=== PATIENT | female | born 1950 | race Caucasian/White ===

== ENCOUNTER 2023-06-27 19:38 | Outpatient (CLI) | payer MEDICARE ==
--- NOTE | 2023-07-16 13:09 | P.PCN ---
Date of Procedure: 06/27/23 Operative Findings: Polysomnography report Date of services 06/27/2023 History This is a 72-year-old female patient was referred to me for evaluation of chronic hypersomnia and fatigue. The patient was suspected to have obstructive sleep apnea as the patient was found to have crowding of the posterior pharynx or Mallampati class IV. She also had an obvious overbite. She has chronic sinus disease and she is a mouth breather and she has gained weight over the years. She is known to have COPD, hypertension, hyperlipidemia and diabetes mellitus type 2. No history of any cardiac disease. Patient is also known to have severe COPD. Maintained on Trelegy Ellipta. She is a chronic smoker and she has remote history of pulmonary embolism Pertinent physical findings The patient's height is 5 feet and 5 inches, weight is 190 pounds with a body mass index of 31.6 Technical description The patient was studied using a standard complex polysomnography protocol that included recording of the 2 EKG, Central, occipital and frontal EEG, right and left outer canthus EOG, submental EMG, right and left anterior tibialis EMG, respiratory airflow by thermocouple and or pressure/flow transducer, respiratory efforts by abdominal and thoracic PVDF belts, oxygen saturation by cable oximetry. Position by observation synchronized the PSG. Equipment used: NGDATA. Sleep characteristics The total recording duration was 393.5 minutes. The total sleep time was 281 minutes. The patient had a sleep efficiency of 71.4%. The wake after sleep onset time was 56 minutes. The sleep latency was 53 minutes and the latest REM sleep was 322.5 minutes. The sleep architecture was characterized by 7.1% stage I, 83.8% stage II, 2.7% stage III and 6,4% REM sleep. The total arousal index was 14.7. Respiratory analysis The sleep study showed a total of 5 obstructive events of which 0 were obstructive apneas, 0 mixed apneas and 5 obstructive hypopneas. The AHI was 0.4. Central apnea index was 0. Oxygenation analysis the patient had a baseline pulse ox of 91% while awake. Lowest oxygen saturation was 84% during sleep and the patient spent approximately 2 hours and 42 minutes of sleep time below pulse ox of 89%. This is probably due to underlying COPD and she did encounter some nocturnal oxygen desaturations. Sleep continuity summary The patient had a total of 69 arousals with an index of 14.7. Respiratory arousal index was 0.2 Periodic limb movements There was a total of 145 periodic movement events with an index of 31. The patient encountered a total of 4 periodic limb movements with arousals with an index of 0.9 Cardiac summary Average heart rate was 81 with a minimum heart rate of 77 and a maximum rate of 87 Assessment Primary snoring, no evidence of any sleep breathing disorder. The patient had an apnea-hypopnea index of 0.4 Nocturnal oxygen desaturation. The patient has chronic baseline hypoxemia with a pulse ox of 91% while awake. This is attributed to her chronic COPD. She did encounter oxygen desaturation the patient may benefit from nighttime O2 supplem entation as the patient spent approximately 2 hours and 42 minutes of sleep time below pulse ox of 89% Severe COPD, based on FEV1 is 58% of predicted Hypertension Obesity Hyperlipidemia Diabetes mellitus type 2 Remote history of pulmonary embolism History of depression History of osteopenia Plan No need for CPAP therapy. Would benefit from oxygen supplementation. If does not have source of O2 at home, recommend O2 therapy overnight with a concentrator at 2 L to maintain saturation above 90%. Continue optimizing COPD. Will follow and will see the patient in the office.
== END 2023-06-28 05:45 | disposition home or self-care (01) ==
LOC: 3 N SLEEP 19:38
PROVIDERS: ATTEND Internal Medicine Critical Care Medicine
DX: G47.33 Obstructive sleep apnea (adult) (pediatric) (principal); G47.10 Hypersomnia, unspecified; R06.83 Snoring; J44.9 Chronic obstructive pulmonary disease, unspecified; I10 Essential (primary) hypertension; E66.9 Obesity, unspecified; E78.5 Hyperlipidemia, unspecified; E11.9 Type 2 diabetes mellitus without complications; F32.A Depression, unspecified; M85.88 Other specified disorders of bone density and structure, other site; Z86.711 Personal history of pulmonary embolism; Z88.2 Allergy status to sulfonamides; Z91.048 Other nonmedicinal substance allergy status; Z79.84 Long term (current) use of oral hypoglycemic drugs; Z79.4 Long term (current) use of insulin; Z79.899 Other long term (current) drug therapy; Z79.82 Long term (current) use of aspirin
CPT/HCPCS: 95810

== ENCOUNTER 2023-07-08 23:42 | Inpatient (IN) | payer MEDICARE ==
[2023-07-09] MEDS ORDERED: NALOXONE 0.4 MG/ML 1 ML VIAL IV PRN (00:24)
--- NOTE | 2023-07-09 00:28 | ED ---
Recheck HPI - General Chief Complaint: Recheck/Abnormal Lab/Rx Stated Complaint: PE ruleout Time Seen by Provider: 07/08/23 23:43 Source: patient, EMS, RN notes reviewed, old records reviewed Mode of arrival: EMS - History of Present Illness Initial Comments: This is a 72-year-old female transferred from outpatient facility patient presents to us for evaluation of elevated troponin and chest pain. Patient did have a CT scan negative for PE. Patient presents for cardiology evaluation currently without chest pain MD Complaint: abnormal lab (Elevated troponin with chest pain) -: hour(s) Returns Today for: persistent/worsening pain related to initial visit Symptoms Since Prior Visit: worsening pain Context: planned re-check, called for abnormal lab result Associated Symptoms: none Treatments Prior to Arrival: other - Related Data Home Medications Medication Instructions Recorded Confirmed Citalopram Hydrobromide [CeleXA] 20 mg PO DAILY 07/09/23 07/09/23 Fluticasone/Umeclidin/Vilanter 1 puff INHALATION RT-DAILY 07/09/23 07/09/23 [Trelegy Ellipta 100-62.5-25] Insulin Glargine,Hum.rec.anlog 20 units SQ AC-SUPPER 07/09/23 07/09/23 [Lantus Solostar Pen] Lisinopril-Hctz 10-12.5 mg 1 tab PO DAILY 07/09/23 07/09/23 [Zestoretic 10-12.5] glipiZIDE [Glucotrol] 10 mg PO DAILY 07/09/23 07/09/23 metFORMIN HCL ER [Glucophage XR] 500 mg PO DAILY 07/09/23 07/09/23 Previous Rx's Medication Instructions Recorded Aspirin 81 mg PO DAILY 90 Days #90 tab 07/14/23 Diltiazem Oral [Cardizem*] 30 mg PO TID 30 Days #90 tab 07/14/23 Pantoprazole [Protonix] 40 mg PO AC-BID 30 Days #60 tab 07/14/23 cefUROXime axetiL [Ceftin] 500 mg PO BID 5 Days #10 tab 07/14/23 Allergies Allergy/AdvReac Type Severity Reaction Status Date / Time sulfamethoxazole Allergy Unknown Verified 07/09/23 07:29 [From Bactrim] trimethoprim [From Bactrim] Allergy Unknown Verified 07/09/23 07:29 Penicillins AdvReac Nausea & Verified 07/09/23 07:29 Vomiting Review of Systems ROS Statement: Those systems with pertinent positive or pertinent negative responses have been documented in the HPI. ROS Other: All systems not noted in ROS Statement are negative. Past Medical History Past Medical History: Diabetes Mellitus, Hypertension Additional Past Surgical History / Comment(s): tooth extracted Smoking Status: Current every day smoker Past Alcohol Use History: None Reported Past Drug Use History: None Reported - Past Family History Mother Family Medical History: Diabetes Mellitus Father Additional Family Medical History / Comment(s): alzhiemers General Exam General appearance: alert, in no apparent distress, anxious Head exam: Present: atraumatic, normocephalic, normal inspection Eye exam: Present: normal appearance, PERRL, EOMI. Absent: scleral icterus, conjunctival injection, periorbital swelling ENT exam: Present: normal exam, mucous membranes moist Neck exam: Present: normal inspection. Absent: tenderness, meningismus, lympha denopathy Respiratory exam: Present: normal lung sounds bilaterally. Absent: respiratory distress, wheezes, rales, rhonchi, stridor Cardiovascular Exam: Present: regular rate, normal rhythm, normal heart sounds. Absent: systolic murmur, diastolic murmur, rubs, gallop, clicks GI/Abdominal exam: Present: soft, normal bowel sounds. Absent: distended, tenderness, guarding, rebound, rigid Extremities exam: Present: normal inspection, full ROM, normal capillary refill. Absent: tenderness, pedal edema, joint swelling, calf tenderness Back exam: Present: normal inspection Neurological exam: Present: alert, oriented X3, CN II-XII intact Psychiatric exam: Present: normal affect, normal mood Skin exam: Present: warm, dry, intact, normal color. Absent: rash Course Vital Signs 07/08/23 07/09/23 07/09/23 23:43 01:00 02:45 Temperature 98.5 F Pulse Rate 95 146 H 92 Pulse Rate [ Pulse Oximetery ] Respiratory 20 22 18 Rate Blood Pressure 135/77 142/90 Blood Pressure [Right Arm] O2 Sat by Pulse 93 L 97 Oximetry 07/09/23 07/09/23 07/09/23 04:21 06:18 08:00 Temperature 97.9 F Pulse Rate 92 97 Pulse Rate [ 96 Pulse Oximetery ] Respiratory 18 19 16 Rate Blood Pressure 117/73 90/59 Blood Pressure 96/79 [Right Arm] O2 Sat by Pulse 95 95 93 L Oximetry 07/09/23 12:00 Temperature 98.2 F Pulse Rate Pulse Rate [ 97 Pulse Oximetery ] Respiratory 16 Rate Blood Pressure Blood Pressure 124/89 [Right Arm] O2 Sat by Pulse 93 L Oximetry - Reevaluation(s) Reevaluation #1: 07/09/23 00:26 Medical records reviewed Reevaluation #2: 07/09/23 00:26 Patient symptoms are improved remains improved has no chest pain Reevaluation #3: 07/09/23 00:27 Patient informed of results questions answered Reevaluation #4: Was pt. sent in by a medical professional or institution ([facility] [place], SMALL BUSINESS REPRESENTATIVE, urgent care, hospital, or skilled nursing...) When possible be specific @ -no Did you speak to anyone other than the patient for history (EMS, parent, family, police, friend...)? What history was obtained from this source @ -no Did you review nursing and triage notes (agree or disagree)? Why? @ -agree Are old charts reviewed (outside hosp., previous admission, EMS record, old EKG, old radiological studies, urgent care reports/EKG's, skilled nursing records)? Report findings @ -yes Differential Diagnosis (chest pain, altered mental status, abdominal pain women, abdominal pain men, vaginal bleeding, weakness, fever, dyspnea, syncope, headache, dizziness, GI bleed, back pain, seizure, CVA, palpatations, mental health, musculoskeletal)? @ -prior EKG interpreted by me (3pts min.). @ -yes X-rays interpreted by me (1pt min.). @ -yes negative for acute disease CT interpreted by me (1pt min.). @ -Yes negative for acute disease U/S interpreted by me (1pt. min.). @ -no What testing was considered but not performed or refused? (CT, X-rays, U/S, labs)? Why? @ -none What meds were considered but not given or refused? Why? @ -none Did you discuss the management of the patient with other professionals (professionals i.e. , [facility], SMALL BUSINESS REPRESENTATIVE, lab, RT, psych nurse, social work instructor, blueprint reader, teacher, chief business officer, case operator)? Give summary @ -no Was smoking cessation discussed for >3mins.? @ -no Was critical care preformed (if so, how long)? @ -yes13 Were there social determinants of health that impacted care today? How? (Homelessness, low income, unemployed, alcoholism, drug addiction, transportation, low edu. Level, literacy, decrease access to med. care, shelter, rehab)? @ -none Was there de-escalation of care discussed even if they declined (Discuss DNR or withdrawal of care, Hospice)? DNR status @ -no What co-morbidities impacted this encounter? (DM, HTN, Smoking, COPD, CAD, Cancer, CVA, ARF, Chemo, Hep., AIDS, mental health diagnosis, sleep apnea, morbid obesity)? @ -none Was patient admitted / discharged? Hospital course, mention meds given and route, prescriptions, significant lab abnormalities, going to OR and other pertinent info. @ - 72 female to ER for chest pain. Patient be admitted for chest pain observation, patient does have elevated troponin, negative CT scan for PE. Admitted Undiagnosed new problem with uncertain prognosis? @ -no Drug Therapy requiring intensive monitoring for toxicity (Heparin, Nitro, Insulin, Cardizem)? @ -no Were any procedures done? @ -no Diagnosis/symptom? @ -Chest pain non-ST elevated NC Acute, or Chronic, or Acute on Chronic? @ -Acute Uncomplicated (without systemic symptoms) or Complicated (systemic symptoms)? @ -Complicated Side effects of treatment? @ -no Exacerbation, Progression, or Severe Exacerbation? @ -exacerbation Poses a threat to life or bodily function? How? (Chest pain, USA, NC, pneumonia, PE, COPD, DKA, ARF, appy, cholecystitis, CVA, Diverticulitis, Homicidal, Suicidal, threat to staff... and all critical care pts) @ -yes Reevaluation #5: Differential Chest Pain: Stable Angina, Unstable Angina, STEMI, NSTEMI Aortic Dissection, Pneumothorax, Musculoskeletal, Esophageal Spasm GERD, Cholecystitis, Pancreatitis, Zoster, this is not meant to be an all-inclusive list. Medical Decision Making - Medical Decision Making 72 female to ER for chest pain. Patient be admitted for chest pain observation, patient does have elevated troponin, negative CT scan for PE. - Lab Data Result diagrams: 07/14/23 06:50 07/14/23 06:50 - EKG Data -: EKG Interpreted by Me (EKG is sinus 90 [place] 149 QRS 76 QTc 424) - Radiology Data Radiology results: report reviewed (CT angio chest negative for PE) Critical Care Time Critical Care Time: Yes Total Critical Care Time: 31 Disposition Clinical Impression: Chest pain, NSTEMI (non-ST elevated myocardial infarction), Diabetes mellitus Disposition: ADMITTED IP TO THIS HOSP Condition: Serious Is patient prescribed a controlled substance at d/c from ED?: No Time of Disposition: 00:45
[2023-07-09] MEDS: SODIUM CHLORIDE 0.9% 1,000 ML IV STA (01:01)
[2023-07-09 01:27] LABS: Basophils % (A) 0 %; Eosinophils % (A) 1 %; HCT 41.7 % (34.0-46.0); HGB 14.7 gm/dL (11.4-16.0); Lymphocytes # (A) 1.1 k/uL (1.0-4.8); Lymphocytes % (A) 16 %; MCH 35.2 pg (25.0-35.0); MCHC 35.3 g/dL (31.0-37.0); MCV 99.7 fL (80.0-100.0); Mean Platelet Volume 11.2; Monocytes # (A) 0.2 k/uL (0-1.0); Monocytes % (A) 2 %; Neutrophils # (A) 5.6 k/uL (1.3-7.7); Neutrophils % (A) 80 %; Platelet Count 175 k/uL (150-450); RBC 4.19 m/uL (3.80-5.40); RDW 13.2 % (11.5-15.5)
[2023-07-09 01:39] LABS: ALT 19 U/L (4-34); African American GFR (CKD) 83 (>60 ml/min/1.73 sqM); Albumin 3.8 g/dL (3.5-5.0); Anion Gap 8 mmol/L; Blood Urea Nitrogen 20 mg/dL (7-17); Calcium 9.2 mg/dL (8.4-10.2); Carbon Dioxide 23 mmol/L (22-30); Chloride 106 mmol/L (98-107); Glucose 264 mg/dL (74-99); Non-African American GFR(CKD) 72 (>60 ml/min/1.73 sqM); Sodium 137 mmol/L (137-145); Total Bilirubin 0.6 mg/dL (0.2-1.3); Total Protein 6.9 g/dL (6.3-8.2)
[2023-07-09 01:48] LABS: NT-Pro-B-Type Natriuretic Pept 33 pg/mL
[2023-07-09 01:55] LABS: INR 0.9 (<1.2); Partial Thromboplastin Time 22.4 sec (22.0-30.0); Prothrombin Time 10.5 sec (10.0-12.5)
[2023-07-09 02:11] LABS: AST 23 U/L (14-36); Potassium 4.4 mmol/L (3.5-5.1)
[2023-07-09 02:12] LABS: Alkaline Phosphatase 64 U/L (38-126); Magnesium 1.3 mg/dL (1.6-2.3); Phosphorus 4.4 mg/dL (2.5-4.5)
[2023-07-09] MEDS ORDERED: HEPARIN SODIUM,PORCINE 10,000 UNIT in SODIUM CHLORIDE 0.9% 1,000 ML IRRIGATION PRN (07:00)
[2023-07-09] MEDS ORDERED: HEPARIN SODIUM,PORCINE (1 ML) 2,500 UNIT in SODIUM CHLORIDE 0.9% 250 ML IRRIGATION PRN (07:00)
[2023-07-09] MEDS ORDERED: DEXTROSE 50% SYRINGE 50 ML IVP PRN ×2 (09:02)
[2023-07-09] MEDS ORDERED: HEPARIN SODIUM 1,000 UN/ML (10ML VL) IV PRN (09:53)
--- NOTE | 2023-07-09 09:56 | P.CRDCN ---
History of Present Illness History of present illness: HISTORY OF PRESENT ILLNESS: This is a 72-year-old female with a past medical history significant for hypertension, diabetes, and pulmonary embolism. 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 We have been asked to see the patient in consultation for elevated troponins. Patient examined at the bedside in the emergency room. Patient initially presented to [facility] yesterday with a chief complaint of pain. Patient states the pain was underneath her right breast. She states that 2 days ago she had an episode of really bad heartburn and was taking Gas-X multiple times. She states the Gas-X would help for a couple hours and then the pain would come back. She continues to report right upper quadrant abdominal pain this morning. She denies having any chest pain or pressure. She does report a family history of CAD and states that her brother and sister both suddenly approximately 10 years ago. She is a current cigarette smoker. DIAGNOSTICS: - EKG reveals sinus mechanism with nonspecific ST-T wave changes - Laboratory data: WBC 7.0. Hemoglobin 14.7. Platelet count 175. Sodium 137. Potassium 4.4. BUN 20. Creatinine 0.82. Troponin 0.037. - Current home cardiac medications include lisinoprilhydrochlorothiazide 10- 12.5 mg daily. REVIEW OF SYSTEMS: At the time of my exam: CONSTITUTIONAL: Denies fever or chills. HEENT: Denies blurred vision, vision changes, or eye pain. Denies hemoptysis CARDIOVASCULAR: Denies chest pain. Denies orthopnea. Denies PND. Denies palpitations RESPIRATORY: Denies shortness of breath. GASTROINTESTINAL: Denies abdominal pain. Denies nausea or vomiting. HEMATOLOGIC: Denies bleeding disorders. GENITOURINARY: Denies any blood in urine. SKIN: Denies pruitis. Denies rash. PHYSICAL EXAM: VITAL SIGNS: Reviewed. GENERAL: Well-developed in no acute distress. HEENT: Head is normocephalic. Pupils are equal, round. Sclerae anicteric. Mucous membranes of the mouth are moist. Neck supple. No JVD or thyromegaly LUNGS: Respirations even and unlabored. Lungs essentially clear to auscultation bilaterally. HEART: Regular rate and rhythm. S1 and S2 heard. ABDOMEN: Soft. Nondistended. Right upper quadrant tender upon palpation. EXTREMITIES: Normal range of motion. No clubbing or cyanosis. Peripheral pulses intact. No lower extremity edema NEUROLOGIC: Awake and alert. Oriented x 3. ASSESSMENT: Right upper quadrant abdominal pain, rule out anginal equivalent Elevated troponin, possible non-STEMI Hypertension Diabetes History of pulmonary embolism Family history of CAD Nicotine dependence PLAN: Obtain 2D echo to assess cardiac structure and function Begin IV heparin Add aspirin 81 mg daily and atorvastatin 40 mg at night Resume home cardiac medications Trend troponins NPO Obtain abdominal ultrasound Will plan for cardiac catheterization later this afternoon Further recommendations pending patient course Nurse practitioner note has been reviewed by physician. Signing provider agrees with the documented findings, assessment, and plan of care documented by MEDICAL LANGUAGE SPECIALIST as a scribe. Past Medical History Past Medical History: Diabetes Mellitus, Hypertension Additional Past Surgical History / Comment(s): tooth extracted Smoking Status: Current every day smoker Past Alcohol Use History: None Reported Past Drug Use History: None Reported - Past Family History Mother Family Medical History: Diabetes Mellitus Father Additional Family Medical History / Comment(s): alzhiemers Medications and Allergies Home Medications Medication Instructions Recorded Confirmed Type Citalopram Hydrobromide [CeleXA] 20 mg PO DAILY 07/09/23 07/09/23 History Doxycycline Hyclate 100 mg PO BID 07/09/23 07/09/23 History Fluticasone/Umeclidin/Vilanter 1 puff INHALATION RT-DAILY 07/09/23 07/09/23 History [Trelegy Ellipta 100-62.5-25] Ibuprofen [Motrin] 600 mg PO Q6H PRN 07/09/23 07/09/23 History Insulin Glargine,Hum.rec.anlog 20 units SQ AC-SUPPER 07/09/23 07/09/23 History [Lantus Solostar Pen] Lisinopril-Hctz 10-12.5 mg 1 tab PO DAILY 07/09/23 07/09/23 History [Zestoretic 10-12.5] glipiZIDE [Glucotrol] 10 mg PO DAILY 07/09/23 07/09/23 History metFORMIN HCL ER [Glucophage XR] 500 mg PO DAILY 07/09/23 07/09/23 History Allergies Allergy/AdvReac Type Severity Reaction Status Date / Time sulfamethoxazole Allergy Unknown Verified 07/09/23 07:29 [From Bactrim] trimethoprim [From Bactrim] Allergy Unknown Verified 07/09/23 07:29 Penicillins AdvReac Nausea & Verified 07/09/23 07:29 Vomiting Physical Exam Vitals: Vital Signs Temp Pulse Resp BP Pulse Ox 07/09/23 06:18 97 19 90/59 95 07/09/23 04:21 92 18 117/73 95 07/09/23 02:45 92 18 07/09/23 01:00 146 H 22 142/90 97 07/08/23 23:43 98.5 F 95 20 135/77 93 L Intake and Output 07/08/23 07/09/23 07/09/23 22:59 06:59 14:59 Other: Weight 87.997 kg Results 07/09/23 10:56 07/09/23 00:55 Cardiac Enzymes 07/09/23 07/09/23 Range/Units 00:55 00:55 AST 23 (14-36) U/L Troponin I 0.037 H* (0.000-0.034) ng/mL Coagulation 07/09/23 Range/Units 00:55 PT 10.5 (10.0-12.5) sec APTT 22.4 (22.0-30.0) sec CBC 07/09/23 Range/Units 00:55 WBC 7.0 (3.8-10.6) k/uL RBC 4.19 (3.80-5.40) m/uL Hgb 14.7 (11.4-16.0) gm/dL Hct 41.7 (34.0-46.0) % Plt Count 175 (150-450) k/uL Comprehensive Metabolic Panel 07/09/23 Range/Units 00:55 Sodium 137 (137-145) mmol/L Potassium 4.4 (3.5-5.1) mmol/L Chloride 106 (98-107) mmol/L Carbon Dioxide 23 (22-30) mmol/L BUN 20 H (7-17) mg/dL Creatinine 0.82 (0.52-1.04) mg/dL Glucose 264 H (74-99) mg/dL Calcium 9.2 (8.4-10.2) mg/dL AST 23 (14-36) U/L ALT 19 (4-34) U/L Alkaline Phosphatase 64 (38-126) U/L Total Protein 6.9 (6.3-8.2) g/dL Albumin 3.8 (3.5-5.0) g/dL Current Medications Generic Name Dose Route Start Last Admin Trade Name Freq PRN Reason Stop Dose Admin Aspirin 81 mg 07/09/23 09:00 Aspirin 81 Mg PO DAILY [facility] Atorvastatin Calcium 40 mg 07/09/23 21:00 Atorvastatin 40 Mg Tab PO HS [facility] Citalopram Hydrobromide 20 mg 07/10/23 09:00 Citalopram Hydrobromide 20 Mg Tab PO DAILY [facility] Dextrose/Water 25 ml 07/09/23 09:02 Dextrose 50% Syringe 50 Ml IVP PER PROTOCOL PRN Hypoglycemia Protocol Dextrose/Water 50 ml 07/09/23 09:02 Dextrose 50% Syringe 50 Ml IVP PER PROTOCOL PRN Hypoglycemia Protocol Lisinopril/HCTZ 1 each 07/10/23 09:00 Lisinopril-Hctz 10-12.5 Mg 1 Each Tab PO DAILY [facility] Sodium Chloride 1,000 mls @ 75 mls/hr 07/09/23 00:24 07/09/23 01:01 Saline 0.9% IV 07/09/23 13:43 75 mls/hr .[id number] STA Administration Insulin Detemir 20 unit 07/09/23 17:30 Insulin Detemir (Levemir) 100 Unit/Ml Syr SQ AC-SUPPER [facility] Morphine Sulfate 4 mg 07/09/23 00:24 Morphine Sulfate 4 Mg/Ml Syringe IV Q4HR PRN Severe Pain (Scale 7 to 10) Naloxone HCl 0.2 mg 07/09/23 00:24 Naloxone 0.4 Mg/Ml 1 Ml Vial IV Q2M PRN Opioid Reversal Ondansetron HCl 4 mg 07/09/23 00:24 Ondansetron 4 Mg/2 Ml Vial IVP Q8HR PRN Nausea And Vomiting Intake and Output 07/08/23 07/09/23 07/09/23 22:59 06:59 14:59 Other: Weight 87.997 kg 07/09/23 00:55 07/09/23 00:55
[2023-07-09] MEDS: ASPIRIN 81 MG PO SCH (10:27)
[2023-07-09] MEDS: HEPARIN SODIUM 1,000 UN/ML (10ML VL) IV ONE (10:27)
[2023-07-09] MEDS: HEPARIN SOD,PORK IN 0.45% NACL 25,000 UNIT in 0.45% NACL 1 250ML.BAG IV SCH (10:28)
[2023-07-09 11:35] LABS: Basophils % (A) 0 %; Eosinophils % (A) 0 %; HCT 42.2 % (34.0-46.0); HGB 13.7 gm/dL (11.4-16.0); Lymphocytes # (A) 1.1 k/uL (1.0-4.8); Lymphocytes % (A) 16 %; MCH 33.1 pg (25.0-35.0); MCHC 32.5 g/dL (31.0-37.0); Macrocytosis Slight; Mean Platelet Volume 11.4; Monocytes # (A) 0.3 k/uL (0-1.0); Monocytes % (A) 5 %; Neutrophils # (A) 5.3 k/uL (1.3-7.7); Neutrophils % (A) 76 %; Platelet Count 196 k/uL (150-450); RBC 4.14 m/uL (3.80-5.40)
[2023-07-09 11:58] LABS: Glucose,Whole Blood 299 mg/dL (70-110)
[2023-07-09 12:00] LABS: INR 1.1 (<1.2); Partial Thromboplastin Time 70.6 sec (22.0-30.0); Prothrombin Time 11.5 sec (10.0-12.5)
[2023-07-09] MEDS ORDERED: NITROGLYCERIN SL TABS 0.4 MG TAB SUBLINGUAL PRN (12:59)
[2023-07-09] MEDS ORDERED: ALPRAZolam 0.25 MG TAB PO PRN (12:59)
[2023-07-09] MEDS: ATORVASTATIN 80 MG TAB PO STA (14:26)
[2023-07-09] MEDS: ASPIRIN 81 MG PO STA (14:26)
[2023-07-09] MEDS: SODIUM CHLORIDE 0.9% 1,000 ML in EMPTY BAG 1 BAG IV SCH (14:26)
[2023-07-09] MEDS: SODIUM CHLORIDE 0.9% 1,000 ML IV ONE (14:40)
[2023-07-09] MEDS ORDERED: HEPARIN SODIUM 1,000 UN/ML (10ML VL) ONE (14:49)
[2023-07-09] MEDS: LIDOCAINE 1% INJ 10MG/ML (20 ML MDV) SQ ONE (14:54)
[2023-07-09] MEDS: MIDAZOLAM 2 MG/2 ML VIAL IVP ONE (14:54)
[2023-07-09] MEDS: VERAPAMIL SYRINGE (5 MG/10 ML) INTRAARTER ONE (14:55)
[2023-07-09] MEDS: IOPAMIDOL-370 100ML BTL INJ ONE (15:04)
[2023-07-09] MEDS ORDERED: RX INFO: IV CONTRAST WAS GIVEN 1 EACH MISC MISCELLANE PRN (15:08)
--- NOTE | 2023-07-09 15:12 | P.PCN ---
Date of Procedure: 07/09/23 Operative Findings: CARDIAC CATHETERIZATION PERFORMING PHYSICIAN: Danny Mello MD, RPVI PROCEDURE PERFORMED: 1. Selective right and left coronary angiogram 2. Left heart catheterization 3. Ultrasound-guided access of the right radial artery INDICATION: Acute non-ST elevation myocardial infarction COMPLICATION: None APPROACH: Right radial artery LEVEL OF SEDATION: Moderate with a sedation length of 11 minutes PROCEDURE DESCRIPTION: After obtaining an informed consent, the patient was brought to cardiac slab tripper. Local anesthesia was performed using lidocaine subcutaneously. The right radial artery was cannulated using Seldinger technique, the guidewire passed easily, following that we advanced a 5-[place] sheath dilator assembly, the wire and dilator were removed and sheath was flushed. Selective right and left coronary angiogram using a 6-[place] JR4 and JL 3.5 catheters. Following that we did left heart catheterization using 6-[place] pigtail catheter. The procedure was completed there was no complication. SELECTIVE CORONARY ANGIOGRAM: The right coronary artery: Large-caliber vessel and a dominant vessel and is angiographically normal Left main: Has mild disease only The left circumflex: Large-caliber vessel and nondominant vessel and appears to be angiographically normal The left anterior descending artery: Large-caliber vessel appears to be angiographically normal and gives rise into a large diagonal branch HEMODYNAMICS: LVEDP was 12 mmHg with no significant gradient across aortic valve CONCLUSION: 1. Mild disease involving the left main 2. Normal left-sided filling pressure POSTPROCEDURE MANAGEMENT: Medical treatment
--- NOTE | 2023-07-09 16:24 | US ---
EXAMINATION TYPE: US abdomen complete DATE OF EXAM: 07/09/2023 COMPARISON: NONE CLINICAL INDICATION: Female, 72 years old with history of abdominal pain/RUQ pain; Generalized pain. TECHNIQUE: Multiple sonographic images of the abdomen are obtained. FINDINGS: EXAM MEASUREMENTS: Liver Length: 17.3 cm Gallbladder Wall: 0.2 cm CBD: 0.6 cm Spleen: 8.3 cm Right Kidney: 10.5 x 4.6 x 3.9 cm Left Kidney: 9.3 x 3.9 x 5.1 cm Pancreas: Main pancreatic duct= 3.7 mm, tail not seen. Liver: Borderline enlarged. Echogenic and heterogenous. Gallbladder: No stones or wall thickening Evidence for sonographic Mcleod's sign: neg CBD: Borderline dilated, acceptable given patient's age. Spleen: wnl Right Kidney: No hydronephrosis or masses seen Left Kidney: No significant hydronephrosis or masses seen, lobular/nodular renal cortex likely an atomic variation. Upper IVC: wnl Abd Aorta: Obscured by overlying bowel gas IMPRESSION: 1. Severe hepatic steatosis. Related with LFTs, lipid profile, patient risk factors. Appropriate renu gement recommended. 2. Main pancreatic duct mildly dilated at 3.7 mm. This may be chronic for the patient. Correlate with amylase and lipase levels. Short interval follow-up ultrasound in 2-3 months to reassess.
[2023-07-09 16:56] LABS: Glucose,Whole Blood 294 mg/dL (70-110)
[2023-07-09] MEDS: SODIUM CHLORIDE 0.9% 1,000 ML IV SCH (17:20)
[2023-07-09] MEDS: INSULIN DETEMIR (LEVEMIR) 100 UNIT/ML SYR SQ SCH (17:55)
[2023-07-09 20:12] LABS: Glucose,Whole Blood 270 mg/dL (70-110)
[2023-07-09] MEDS: ATORVASTATIN 40 MG TAB PO SCH (20:14)
[2023-07-09] MEDS: MORPHINE SULFATE 4 MG/ML SYRINGE IV PRN (20:14)
[2023-07-09] MEDS: PANTOPRAZOLE 40 MG TABLET PO SCH (20:14)
[2023-07-09] MEDS: ONDANSETRON 4 MG/2 ML VIAL IVP PRN (22:54)
[2023-07-09] MEDS: ACETAMINOPHEN TAB 325 MG TAB PO PRN (23:11)
[2023-07-09 23:54] LABS: Amylase 42 U/L (30-110); Lipase 57 U/L (23-300)
[2023-07-10 06:03] LABS: Glucose,Whole Blood 263 mg/dL (70-110)
--- NOTE | 2023-07-10 08:39 | XR ---
EXAMINATION TYPE: XR chest 1V DATE OF EXAM: 07/10/2023 COMPARISON: None INDICATION: Short of breath TECHNIQUE: Single frontal view of the chest is obtained. FINDINGS: The heart size is normal. The pulmonary vasculature is normal. The lungs are clear. IMPRESSION: 1. No acute pulmonary process.
--- NOTE | 2023-07-10 08:44 | PN ---
PROGRESS NOTE Possible discharge if cleared by Surgery, Cardiology. MMODL / IJN: [id number] /
[2023-07-10] MEDS: CITALOPRAM HYDROBROMIDE 20 MG TAB PO SCH (10:02)
[2023-07-10] MEDS: LISINOPRIL-HCTZ 10-12.5 MG 1 EACH TAB PO SCH (10:03)
[2023-07-10] MEDS: NICOTINE 21MG/24HR PATCH TRANSDERM SCH (10:06)
[2023-07-10 10:37] LABS: Prothrombin Time 11.2 sec (10.0-12.5)
[2023-07-10 10:50] LABS: HCT 40.3 % (34.0-46.0); HGB 13.2 gm/dL (11.4-16.0); MCH 33.7 pg (25.0-35.0); MCHC 32.8 g/dL (31.0-37.0); MCV 102.9 fL (80.0-100.0); Macrocytosis Slight; Mean Platelet Volume 11.1; Platelet Count 132 k/uL (150-450); RBC 3.92 m/uL (3.80-5.40); RDW 13.3 % (11.5-15.5); WBC 11.5 k/uL (3.8-10.6)
[2023-07-10 10:56] LABS: ALT 209 U/L (4-34); AST 357 U/L (14-36); African American GFR (CKD) 61 (>60 ml/min/1.73 sqM); Albumin 3.2 g/dL (3.5-5.0); Alkaline Phosphatase 65 U/L (38-126); Anion Gap 7 mmol/L; Blood Urea Nitrogen 26 mg/dL (7-17); Carbon Dioxide 26 mmol/L (22-30); Chloride 102 mmol/L (98-107); Glucose 333 mg/dL (74-99); Magnesium 1.2 mg/dL (1.6-2.3); Non-African American GFR(CKD) 53 (>60 ml/min/1.73 sqM); Phosphorus 5.9 mg/dL (2.5-4.5); Potassium 4.6 mmol/L (3.5-5.1); Sodium 135 mmol/L (137-145); Total Bilirubin 3.7 mg/dL (0.2-1.3)
--- NOTE | 2023-07-10 11:07 | P.PN ---
Subjective HISTORY OF PRESENT ILLNESS: This is a 72-year-old female with a past medical history significant for hypertension, diabetes, and pulmonary embolism. 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 We have been asked to see the patient in consultation for elevated troponins. Patient examined at the bedside in the emergency room. Patient initially presented to [facility] yesterday with a chief complaint of pain. Patient states the pain was underneath her right breast. She states that 2 days ago she had an episode of really bad heartburn and was taking Gas-X multiple times. She states the Gas-X would help for a couple hours and then the pain would come back. She continues to report right upper quadrant abdominal pain this morning. She denies having any chest pain or pressure. She does report a family history of CAD and states that her brother and sister both suddenly approximately 10 years ago. She is a current cigarette smoker. DIAGNOSTICS: - EKG reveals sinus mechanism with nonspecific ST-T wave changes - Laboratory data: WBC 7.0. Hemoglobin 14.7. Platelet count 175. Sodium 137. Potassium 4.4. BUN 20. Creatinine 0.82. Troponin 0.037. - Current home cardiac medications include lisinoprilhydrochlorothiazide 10- 12.5 mg daily. 07/10/2023 Patient is status postcardiac catheterization revealing mild disease of the left main. Normal left-sided filling pressures. Medical management was recommended. Patient examined this morning at the bedside. Patient denies chest pain or pressure. Patient does have wheezing upon examination today and a cough. Abdominal ultrasound completed revealing severe hepatic steatosis and main pancreatic duct dilated 3.7 mm. PHYSICAL EXAM: VITAL SIGNS: Reviewed. GENERAL: Well-developed in no acute distress. HEENT: Head is normocephalic. Pupils are equal, round. Sclerae anicteric. Mucous membranes of the mouth are moist. Neck supple. No JVD or thyromegaly LUNGS: Respirations even and unlabored. Lungs with expiratory wheezing noted. HEART: Regular rate and rhythm. S1 and S2 heard. ABDOMEN: Soft. Nondistended. Right upper quadrant tender upon palpation. EXTREMITIES: Normal range of motion. No clubbing or cyanosis. Peripheral pulses intact. No lower extremity edema NEUROLOGIC: Awake and alert. Oriented x 3. ASSESSMENT: Right upper quadrant abdominal pain Elevated troponin of unclear significance Status postcardiac catheterization revealing mild disease of the left main Hypertension Diabetes History of pulmonary embolism Family history of CAD Nicotine dependence Transaminitis Hyperbilirubinemia Fever PLAN: Discontinue statin secondary to transaminitis Continue additional cardiac medications General surgery following for abdominal pain GI has been consulted secondary to abnormal ultrasound. Await recommendations Smoking cessation recommended. Patient started on nicotine patch today. Patient to be referred to [place] quit line upon discharge Further recommendations pending patient course Nurse practitioner note has been reviewed by physician. Signing provider agrees with the documented findings, assessment, and plan of care documented by CABLE INSTALLER REPAIRER HELPER as a scribe. Objective - Vital Signs Vital signs: Vital Signs Temp 98.1 F 07/10/23 09:50 Pulse 98 07/10/23 09:50 Resp 16 07/10/23 09:50 BP 107/72 07/10/23 09:50 Pulse Ox 94 L 07/10/23 09:50 FiO2 Intake & Output 07/09/23 07/10/23 07/10/23 18:59 06:59 18:59 Intake Total 368 180 Balance 368 180 Weight 87.997 kg Intake: IV 100 Intake, IV Titration 150 Amount Sodium Chloride 0.9% 1, 150 000 ml @ 75 mls/hr IV . [id number] [facility] Rx#:[id number] Oral 118 180 Other: Voiding Method Toilet Toilet # Voids 1 2 1 # Bowel Movements 2 - Labs CBC & Chem 7: 07/10/23 09:58 07/10/23 09:58 Labs: Abnormal Lab Results - Last 24 Hours (Table) 07/09/23 07/09/23 07/09/23 Range/Units 10:56 10:57 11:56 WBC (3.8-10.6) k/uL MCV 102.0 H (80.0-100.0) fL Plt Count (150-450) k/uL APTT 70.6 H (22.0-30.0) sec D-Dimer (<0.60) mg/L FEU Sodium (137-145) mmol/L BUN (7-17) mg/dL Creatinine (0.52-1.04) mg/dL Glucose (74-99) mg/dL POC Glucose (mg/dL) 299 H (70-110) mg/dL Calcium (8.4-10.2) mg/dL Phosphorus (2.5-4.5) mg/dL Magnesium (1.6-2.3) mg/dL Total Bilirubin (0.2-1.3) mg/dL AST (14-36) U/L ALT (4-34) U/L Total Protein (6.3-8.2) g/dL Albumin (3.5-5.0) g/dL 07/09/23 07/09/23 07/09/23 Range/Units 16:55 17:00 20:08 WBC (3.8-10.6) k/uL MCV (80.0-100.0) fL Plt Count (150-450) k/uL APTT (22.0-30.0) sec D-Dimer 0.74 H (<0.60) mg/L FEU Sodium (137-145) mmol/L BUN (7-17) mg/dL Creatinine (0.52-1.04) mg/dL Glucose (74-99) mg/dL POC Glucose (mg/dL) 294 H 270 H (70-110) mg/dL Calcium (8.4-10.2) mg/dL Phosphorus (2.5-4.5) mg/dL Magnesium (1.6-2.3) mg/dL Total Bilirubin (0.2-1.3) mg/dL AST (14-36) U/L ALT (4-34) U/L Total Protein (6.3-8.2) g/dL Albumin (3.5-5.0) g/dL 07/10/23 07/10/23 07/10/23 Range/Units 06:01 09:58 09:58 WBC 11.5 H (3.8-10.6) k/uL MCV 102.9 H (80.0-100.0) fL Plt Count 132 L (150-450) k/uL APTT (22.0-30.0) sec D-Dimer (<0.60) mg/L FEU Sodium 135 L (137-145) mmol/L BUN 26 H (7-17) mg/dL Creatinine 1.06 H (0.52-1.04) mg/dL Glucose 333 H (74-99) mg/dL POC Glucose (mg/dL) 263 H (70-110) mg/dL Calcium 8.0 L (8.4-10.2) mg/dL Phosphorus 5.9 H (2.5-4.5) mg/dL Magnesium 1.2 L (1.6-2.3) mg/dL Total Bilirubin 3.7 H (0.2-1.3) mg/dL AST 357 H (14-36) U/L ALT 209 H (4-34) U/L Total Protein 6.0 L (6.3-8.2) g/dL Albumin 3.2 L (3.5-5.0) g/dL
[2023-07-10 11:21] LABS: Band Neutrophils % 8 %; Basophils # (M) 0.12 k/uL (0-0.2); Eosinophils # (M) 0.23 k/uL (0-0.7); Lymphocytes # (M) 1.04 k/uL (1.0-4.8); Metamyelocytes # (M) 0.35 k/uL (0); Metamyelocytes % 3 %; Monocytes # (M) 0.46 k/uL (0-1.0); Neutrophils % (M) 75 %; Nucleated Red Blood Cells 0 /100 WBC (0-0); Total Cells Counted 200
[2023-07-10 11:46] LABS: Glucose,Whole Blood 352 mg/dL (70-110)
--- NOTE | 2023-07-10 11:57 | CA ---
Transthoracic Echo Report Name: Suly Jefferson Age: 72 Gender: F : 1950 Exam Date: 07/10/2023 09:10 Exam Location: [place] [facility] Ht (in): 65 Wt (lb): 194 Ordering Physician: Padma Tinsley Attending/Referring Phys: [id number], [employer] Division Controller Teri Diaz RDCS Procedure CPT: Indications: LV function, CP Cardiac Hx: Cath Technical Quality: Fair Contrast 1: Total Dose (mL): Contrast 2: Total Dose (mL): MEASUREMENTS (Male / Female) Normal Values 2D ECHO LV Diastolic Diameter PLAX 4.1 cm 4.2 - 5.9 / 3.9 - 5.3 cm LV Systolic Diameter PLAX 2.7 cm IVS Diastolic Thickness 1.2 cm 0.6 - 1.0 / 0.6 - 0.9 cm LVPW Diastolic Thickness 1.3 cm 0.6 - 1.0 / 0.6 - 0.9 cm LV Relative Wall Thickness 0.6 RV Internal Dim ED PLAX 2.2 cm LA Systolic Diameter LX 3.1 cm 3.0 - 4.0 / 2.7 - 3.8 cm LV Diastolic Volume MOD BP 42.3 cm??? 67 - 155 / 56 - 104 cm??? LV Systolic Volume MOD BP 19.0 cm??? 22 - 58 / 19 - 49 cm??? LV Ejection Fraction MOD BP 55.1 % >= 55 % LV Cardiac Index MOD BP 1142.7 cm???/min???m??? LV Diastolic Volume MOD 4C 41.5 cm??? LV Systolic Volume MOD 4C 20.1 cm??? LV Ejection Fraction MOD 4C 51.6 % LV Cardiac Index MOD 4C 1049.8 cm???/min???m??? LV Diastolic Length 4C 6.6 cm LV Systolic Length 4C 5.8 cm LV Diastolic Volume MOD 2C 42.7 cm??? LV Systolic Volume MOD 2C 14.9 cm??? LV Ejection Fraction MOD 2C 65.1 % LV Cardiac Index MOD 2C 1360.7 cm???/min???m??? LV Diastolic Length 2C 6.7 cm LV Systolic Length 2C 5.6 cm LA Volume 39.2 cm??? 18 - 58 / 22 - 52 cm??? LA Volume Index 19.2 cm???/m??? 16 - 28 cm???/m??? M-MODE Aortic Root Diameter MM 2.8 cm LA Systolic Diameter MM 2.9 cm LA Ao Ratio MM 1.0 DOPPLER AV Peak Velocity 152.6 cm/s AV Peak Gradient 9.3 mmHg AV Mean Velocity 101.2 cm/s AV Mean Gradient 4.8 mmHg AV Velocity Time Integral 27.6 cm MV Area PHT 3.0 cm??? Mitral E Point Velocity 81.5 cm/s Mitral A Point Velocity 99.8 cm/s Mitral E to A Ratio 0.8 MV Deceleration Time 251.5 ms TR Peak Velocity 275.4 cm/s TR Peak Gradient 30.3 mmHg Right Atrial Pressure 5.0 mmHg Pulmonary Artery Systolic Pressu 35.3 mmHg Right Ventricular Systolic Press 35.3 mmHg FINDINGS Left Ventricle Left ventricular ejection fraction is estimated at 55-60 %. Mildly increased septal wall thickness. Mildly increased posterior wall thickness. No obvious regional wall motion abnormalities. Left ventricular cavity size normal. Right Ventricle Normal right ventricular size and function. Right ventricular systolic pressure within normal limits. Right Atrium Normal right atrial size. Left Atrium Normal left atrial size. Mitral Valve Structurally normal mitral valve. Trace to mild mitral regurgitation. Aortic Valve No aortic valve stenosis or regurgitation. Trileaflet aortic valve. Tricuspid Valve Structurally normal tricuspid valve. Mild tricuspid regurgitation. Pulmonic Valve Structurally normal pulmonic valve. Trace pulmonic regurgitation. Pericardium No pericardial or pleural effusion. Prominent epicardial fat. Aorta Normal size aortic root and proximal ascending aorta. CONCLUSIONS Normal LV function Previewed by: Dr. Erasto Ramos MD (Electronically Signed) Final Date: 10 July 2023 11:56
[2023-07-10] MEDS: polyethylene glycoL 3350 17 GM POWD.PACK PO SCH (11:58)
[2023-07-10 12:06] LABS: Appearance,Urine Cloudy (Clear); Bilirubin,Urine 1+ (Negative); Blood,Urine Moderate (Negative); Color,Urine Dark Yellow; Glucose,Urine (UA) 4+ (Negative); Ketones,Urine Negative (Negative); Leukocyte Esterase,Urine Negative (Negative); Mucus,Urine Rare /hpf; Nitrite,Urine Negative (Negative); PH, Urine 5.5 (5.0-8.0); Protein,Urine 1+ (Negative); RBC,Urine 2 /hpf (0-5); Specific Gravity,Urine 1.027 (1.001-1.035); Squamous Epithelial Cell,Urine 1 /hpf (0-4); WBC,Urine 3 /hpf (0-5)
--- NOTE | 2023-07-10 13:27 | P.GSCN ---
History of Present Illness Consult date: 07/10/23 History of present illness: CHIEF COMPLAINT: Chest pain HISTORY OF PRESENT ILLNESS: This is a 72-year-old female who presented initially with chest pain under the right breast. She had a mildly elevated troponin. She was seen by cardiology and underwent a heart catheterization no cardiac stents were placed. And results had revealed mild coronary artery disease left main. Patient reports having abdominal pain that started last night radiating across the upper abdomen. Patient thought it may be related to constipation. She had not had a bowel movement for several days. However last night after the pain she did start having bowel movements and flatus. This morning pain has resolved. She denies any nausea or vomiting. On exam she does have some mild discomfort in the right upper quadrant. She did have a fever last night of 101 and had been tachycardic. And is now having leukocytosis white count 11.5. LFTs and total bilirubin are elevated. Gallbladder ultrasound had reported severe hepatic steatosis. Main pancreatic duct mildly dilated at 3.7 mm. No gallstones or gallbladder wall thickening reported. Surgical service consulted for abdominal pain. PAST MEDICAL HISTORY: See list. PAST SURGICAL HISTORY: See list. MEDICATIONS: See list. ALLERGIES: See list. SOCIAL HISTORY: No illicit drug use. REVIEW OF SYSTEMS: CONSTITUTIONAL: Denies fever or chills. HEENT: Denies blurred vision, vision changes, or eye pain. Denies hemoptysis ENDOCRINE: Denies heat or cold intolerance. CARDIOVASCULAR: Denies chest pain or pressure. RESPIRATORY: No shortness of breath. GASTROINTESTINAL: Denies abdominal pain. Denies nausea or vomiting. NEURO: Denies history of seizures. PSYCH: No depression or suicidal ideation HEMATOLOGIC: Denies bleeding disorders. LYMPHATIC: The patient denies any lumps and bumps around the neck. GENITOURINARY: Denies any blood in urine or increased urinary frequency. MUSCULOSKELETAL: Denies myalgias. Denies joint swelling. Denies decreased range of motion beyond patients baseline. SKIN: Denies pruitis. Denies rash. PHYSICAL EXAM: VITAL SIGNS: Reviewed GENERAL: Well-developed in no acute distress. HEENT: No sclera icterus. Extraocular movements grossly intact. Moist buccal mucosa. Head is atraumatic, normocephalic. Hears conversational speech. No nasal drainage. NECK: Supple without lymphadenopathy. CHEST: Non-labored respirations and equal bilateral excursions. CARDIOVASCULAR: Palpable 2+ radial pulses. ABDOMEN: Soft. Nondistended. Mild tenderness with palpation right upper quad rant MUSCULOSKELETAL: No clubbing or cyanosis. NEUROLOGIC: No focal or lateralizing signs. Cranial nerves II through XII grossly intact. PSYCH: Appropriate affect. Alert and oriented to person, place and time. SKIN: Well perfused. Good skin turgor. LABORATORY DATA: WBC 11.5 Hgb 13.2 platelets 132 Sodium 135 potassium 4.6 creatinine 1.06 Total bilirubin 3.7 AST 357 ALT 209 alk phos 65 lipase 57 Magnesium 1.2 IMAGING: Chest x-ray no acute pulmonary process gallbladder ultrasound had reported severe hepatic steatosis. Main pancreatic duct mildly dilated at 3.7 mm. No gallstones or gallbladder wall thickening reported. ASSESSMENT: 1. Right upper quadrant pain 2. Main pancreatic duct mildly dilated on ultrasound 3. Elevated LFTs and total bilirubin 4. Hypomagnesemia 5. Chest pain and mildly elevated troponin status post heart catheterization with mild coronary artery disease left main. 6. Constipation PLAN: -Consult GI service regarding mildly dilated pancreatic duct noted. Also noted patient has elevated LFTs and total bilirubin -MiraLAX added for constipation -Repeat LFTs in a.m. -Replace magnesium. Repeat magnesium level in a.m. Physician Can Carrier note has been reviewed by physician. Signing provider agrees with the documented findings, assessment, and plan of care. Past Medical History Past Medical History: Diabetes Mellitus, Hypertension History of Any Multi-Drug Resistant Organisms: None Reported Past Surgical History: Section Additional Past Surgical History / Comment(s): tooth extracted Past Anesthesia/Blood Transfusion Reactions: No Reported Reaction Smoking Status: Current every day smoker Past Alcohol Use History: None Reported Past Drug Use History: None Reported - Past Family History Mother Family Medical History: Diabetes Mellitus Father Additional Family Medical History / Comment(s): alzhiemers Medications and Allergies Home Medications Medication Instructions Recorded Confirmed Type Citalopram Hydrobromide [CeleXA] 20 mg PO DAILY 07/09/23 07/09/23 History Doxycycline Hyclate 100 mg PO BID 07/09/23 07/09/23 History Fluticasone/Umeclidin/Vilanter 1 puff INHALATION RT-DAILY 07/09/23 07/09/23 History [Trelegy Ellipta 100-62.5-25] Ibuprofen [Motrin] 600 mg PO Q6H PRN 07/09/23 07/09/23 History Insulin Glargine,Hum.rec.anlog 20 units SQ AC-SUPPER 07/09/23 07/09/23 History [Lantus Solostar Pen] Lisinopril-Hctz 10-12.5 mg 1 tab PO DAILY 07/09/23 07/09/23 History [Zestoretic 10-12.5] glipiZIDE [Glucotrol] 10 mg PO DAILY 07/09/23 07/09/23 History metFORMIN HCL ER [Glucophage XR] 500 mg PO DAILY 07/09/23 07/09/23 History Allergies Allergy/AdvReac Type Severity Reaction Status Date / Time sulfamethoxazole Allergy Unknown Verified 07/09/23 07:29 [From Bactrim] trimethoprim [From Bactrim] Allergy Unknown Verified 07/09/23 07:29 Penicillins AdvReac Nausea & Verified 07/09/23 07:29 Vomiting Surgical - Exam Vital Signs Temp Pulse Resp BP Pulse Ox 98.5 F 95 20 135/77 93 L 07/08/23 23:43 07/08/23 23:43 07/08/23 23:43 07/08/23 23:43 07/08/23 23:43 Results - Labs 07/10/23 09:58 07/10/23 09:58 Abnormal Lab Results - Last 24 Hours (Table) 07/09/23 07/09/23 07/09/23 Range/Units 10:56 10:57 11:56 WBC (3.8-10.6) k/uL MCV 102.0 H (80.0-100.0) fL Plt Count (150-450) k/uL APTT 70.6 H (22.0-30.0) sec D-Dimer (<0.60) mg/L FEU Sodium (137-145) mmol/L BUN (7-17) mg/dL Creatinine (0.52-1.04) mg/dL Glucose (74-99) mg/dL POC Glucose (mg/dL) 299 H (70-110) mg/dL Calcium (8.4-10.2) mg/dL Phosphorus (2.5-4.5) mg/dL Magnesium (1.6-2.3) mg/dL Total Bilirubin (0.2-1.3) mg/dL AST (14-36) U/L ALT (4-34) U/L C-Reactive Protein (<1.0) mg/dL Total Protein (6.3-8.2) g/dL Albumin (3.5-5.0) g/dL 07/09/23 07/09/23 07/09/23 Range/Units 16:55 17:00 20:08 WBC (3.8-10.6) k/uL MCV (80.0-100.0) fL Plt Count (150-450) k/uL APTT (22.0-30.0) sec D-Dimer 0.74 H (<0.60) mg/L FEU Sodium (137-145) mmol/L BUN (7-17) mg/dL Creatinine (0.52-1.04) mg/dL Glucose (74-99) mg/dL POC Glucose (mg/dL) 294 H 270 H (70-110) mg/dL Calcium (8.4-10.2) mg/dL Phosphorus (2.5-4.5) mg/dL Magnesium (1.6-2.3) mg/dL Total Bilirubin (0.2-1.3) mg/dL AST (14-36) U/L ALT (4-34) U/L C-Reactive Protein (<1.0) mg/dL Total Protein (6.3-8.2) g/dL Albumin (3.5-5.0) g/dL 07/10/23 07/10/23 07/10/23 Range/Units 06:01 09:58 09:58 WBC 11.5 H (3.8-10.6) k/uL MCV 102.9 H (80.0-100.0) fL Plt Count 132 L (150-450) k/uL APTT (22.0-30.0) sec D-Dimer (<0.60) mg/L FEU Sodium 135 L (137-145) mmol/L BUN 26 H (7-17) mg/dL Creatinine 1.06 H (0.52-1.04) mg/dL Glucose 333 H (74-99) mg/dL POC Glucose (mg/dL) 263 H (70-110) mg/dL Calcium 8.0 L (8.4-10.2) mg/dL Phosphorus 5.9 H (2.5-4.5) mg/dL Magnesium 1.2 L (1.6-2.3) mg/dL Total Bilirubin 3.7 H (0.2-1.3) mg/dL AST 357 H (14-36) U/L ALT 209 H (4-34) U/L C-Reactive Protein (<1.0) mg/dL Total Protein 6.0 L (6.3-8.2) g/dL Albumin 3.2 L (3.5-5.0) g/dL 07/10/23 Range/Units 09:58 WBC (3.8-10.6) k/uL MCV (80.0-100.0) fL Plt Count (150-450) k/uL APTT (22.0-30.0) sec D-Dimer (<0.60) mg/L FEU Sodium (137-145) mmol/L BUN (7-17) mg/dL Creatinine (0.52-1.04) mg/dL Glucose (74-99) mg/dL POC Glucose (mg/dL) (70-110) mg/dL Calcium (8.4-10.2) mg/dL Phosphorus (2.5-4.5) mg/dL Magnesium (1.6-2.3) mg/dL Total Bilirubin (0.2-1.3) mg/dL AST (14-36) U/L ALT (4-34) U/L C-Reactive Protein 4.9 H (<1.0) mg/dL Total Protein (6.3-8.2) g/dL Albumin (3.5-5.0) g/dL Diabetes panel 07/10/23 Range/Units 09:58 Sodium 135 L (137-145) mmol/L Potassium 4.6 (3.5-5.1) mmol/L Chloride 102 (98-107) mmol/L Carbon Dioxide 26 (22-30) mmol/L BUN 26 H (7-17) mg/dL Creatinine 1.06 H (0.52-1.04) mg/dL Glucose 333 H (74-99) mg/dL Calcium 8.0 L (8.4-10.2) mg/dL AST 357 H (14-36) U/L ALT 209 H (4-34) U/L Alkaline Phosphatase 65 (38-126) U/L Total Protein 6.0 L (6.3-8.2) g/dL Albumin 3.2 L (3.5-5.0) g/dL Calcium panel 07/10/23 Range/Units 09:58 Calcium 8.0 L (8.4-10.2) mg/dL Phosphorus 5.9 H (2.5-4.5) mg/dL Albumin 3.2 L (3.5-5.0) g/dL Pituitary panel 07/10/23 Range/Units 09:58 Sodium 135 L (137-145) mmol/L Potassium 4.6 (3.5-5.1) mmol/L Chloride 102 (98-107) mmol/L Carbon Dioxide 26 (22-30) mmol/L BUN 26 H (7-17) mg/dL Creatinine 1.06 H (0.52-1.04) mg/dL Glucose 333 H (74-99) mg/dL Calcium 8.0 L (8.4-10.2) mg/dL Adrenal panel 07/10/23 Range/Units 09:58 Sodium 135 L (137-145) mmol/L Potassium 4.6 (3.5-5.1) mmol/L Chloride 102 (98-107) mmol/L Carbon Dioxide 26 (22-30) mmol/L BUN 26 H (7-17) mg/dL Creatinine 1.06 H (0.52-1.04) mg/dL Glucose 333 H (74-99) mg/dL Calcium 8.0 L (8.4-10.2) mg/dL Total Bilirubin 3.7 H (0.2-1.3) mg/dL AST 357 H (14-36) U/L ALT 209 H (4-34) U/L Alkaline Phosphatase 65 (38-126) U/L Total Protein 6.0 L (6.3-8.2) g/dL Albumin 3.2 L (3.5-5.0) g/dL
--- NOTE | 2023-07-10 13:39 | P.CONS ---
History of Present Illness - Reason for Consult Consult date: 07/10/23 Dilated pancreatic duct on ultrasound Requesting physician: Ruthann Gill - Chief Complaint Right upper quadrant pain - History of Present Illness This is a pleasant 72-year-old female with a past medical history including hypertension, diabetes and pulmonary embolism. Patient was seen at [facility] which she states was for right upper quadrant chest/abdominal pain underneath her breast. She states that she thought that it was a blood clot because she has a history of a previous pulmonary embolism and states it felt the same. She had elevated troponins and was transferred to [facility] for further workup and cardiology evaluation. She had EKG changes with nonspecific ST-T wave changes. She underwent cardiac catheterization with findi ngs of mild disease involving the left main, normal left-sided filling pressure. Cardiology recommended continuing medical treatment. She had no chest pain on admission. She was stating that it was more in her right upper quadrant. They did an ultrasound of the abdomen that reported severe hepatic steatosis, main pancreatic duct mildly dilated 3.7 mm may be chronic correlate with amylase and lipase. On admission she had normal LFTs however today she did have increase in her LFTs. Gastroenterology was consulted by general surgery for dilated pancreatic duct. Patient denies any abdominal pain at this time. She states that last night she had abdominal pain again in that right upper quadrant wraps around to her back. She states that she had some fever and chills associated with it. Today she states she is just tired. She denies shortness of breath, chest pain, abdominal pain, nausea or vomiting. She denies any history of liver disease. States that a few years back she did have Bactrim for urinary tract infection which did cause elevated liver enzymes and states she was transferred to [facility] and they did a full workup on her however stated it was just related to medication. She denies any history of alcohol use or abuse. And no known history of hepatic steatosis. She denies any recent new medications. She was started on Rocephin but that was only earlier this morning for fever. Patient spiked a one-time temp of 101.0. She has been afebrile since midnight. Infectious disease was consulted for fever, they ordered a CT of the abdomen pelvis. Normal LFTs on admission as well as amylase and lipase. Repeat labs today WBC 11.5 hemoglobin 13.2 hematocrit 40.3 platelet count 132,000 INR 1.0 sodium 135 potassium 4.6 BUN 26 creatinine 1.06 magnesium 1.2 total bilirubin 3.7 AST 357 ALT 209 alkaline phosphatase 65 Review of Systems REVIEW OF SYSTEMS: CARDIOPULMONARY: No chest pain or shortness of breath. Gastrointestinal: Right upper quadrant pain, radiated to back. Now resolved. No nausea or vomiting. No hematemesis, coffee-ground emesis. No rectal bleeding, or melena. GENITOURINARY: No dysuria or hematuria. MUSCULOSKELETAL: Reports normal range of motion. SKIN: No rashes. No jaundice. ENDOCRINE: No chills, fevers. No excessive weight gain or loss. No polydipsia or polyuria. PSYCHIATRIC: Unremarkable. NEUROLOGY: No change in mental status. Denies dizziness, headache. ENT: Vision unremarkable. CONSTITUTIONAL: No recent weight loss. No fever, chills, night sweats. Past Medical History Past Medical History: Diabetes Mellitus, Hypertension History of Any Multi-Drug Resistant Organisms: None Reported Past Surgical History: Section Additional Past Surgical History / Comment(s): tooth extracted Past Anesthesia/Blood Transfusion Reactions: No Reported Reaction Smoking Status: Current every day smoker Past Alcohol Use History: None Reported Past Drug Use History: None Reported - Past Family History Mother Family Medical History: Diabetes Mellitus Father Additional Family Medical History / Comment(s): alzhiemers Medications and Allergies Home Medications Medication Instructions Recorded Confirmed Type Citalopram Hydrobromide [CeleXA] 20 mg PO DAILY 07/09/23 07/09/23 History Doxycycline Hyclate 100 mg PO BID 07/09/23 07/09/23 History Fluticasone/Umeclidin/Vilanter 1 puff INHALATION RT-DAILY 07/09/23 07/09/23 History [Trelegy Ellipta 100-62.5-25] Ibuprofen [Motrin] 600 mg PO Q6H PRN 07/09/23 07/09/23 History Insulin Glargine,Hum.rec.anlog 20 units SQ AC-SUPPER 07/09/23 07/09/23 History [Lantus Solostar Pen] Lisinopril-Hctz 10-12.5 mg 1 tab PO DAILY 07/09/23 07/09/23 History [Zestoretic 10-12.5] glipiZIDE [Glucotrol] 10 mg PO DAILY 07/09/23 07/09/23 History metFORMIN HCL ER [Glucophage XR] 500 mg PO DAILY 07/09/23 07/09/23 History Allergies Allergy/AdvReac Type Severity Reaction Status Date / Time sulfamethoxazole Allergy Unknown Verified 07/09/23 07:29 [From Bactrim] trimethoprim [From Bactrim] Allergy Unknown Verified 07/09/23 07:29 Penicillins AdvReac Nausea & Verified 07/09/23 07:29 Vomiting Physical Exam Vitals: Vital Signs Temp Pulse Resp BP BP Pulse Ox 07/10/23 11:35 98.6 F 97 18 93/62 92 L 07/10/23 09:50 98.1 F 98 16 107/72 94 L 07/10/23 09:33 95 07/10/23 04:00 98.3 F 114 H 18 110/67 95 07/10/23 02:00 126 H 18 07/10/23 01:33 99.1 F 07/10/23 00:24 94 L 07/10/23 00:00 101 F H 126 H 18 159/79 94 L 07/09/23 20:00 97.6 F 126 H 18 172/88 92 L 07/09/23 18:10 94 20 122/82 95 07/09/23 17:10 98 20 126/84 95 07/09/23 16:40 98.1 F 93 20 134/79 95 07/09/23 16:15 92 16 100/59 95 07/09/23 15:58 89 16 106/58 95 07/09/23 15:43 89 16 117/64 95 07/09/23 15:28 99 16 103/77 95 07/09/23 15:13 16 101/68 93 L Intake and Output 07/09/23 07/10/23 07/10/23 22:59 06:59 14:59 Intake Total 268 360 Output Total 400 Balance 268 -40 Intake: Intake, IV Titration 150 Amount Sodium Chloride 0.9% 1, 150 000 ml @ 75 mls/hr IV . [id number] [facility] Rx#:[id number] Oral 118 360 Output: Urine 400 Other: Voiding Method Toilet Toilet Toilet # Voids 1 2 1 # Bowel Movements 2 General appearance: The patient is alert, oriented, appears in no acute distress. HET: Head is normocephalic and atraumatic. Conjunctiva pink. Sclera anicteric. Neck: Supple without lymphadenopathy. Trachea midline. Heart: Regular. Lungs: Equal expansion, normal respiratory effort. Abdomen: Soft, nontender, nondistended with bowel sounds. No guarding or rigidity. Skin: No rashes. No jaundice. Extremities: Normal skin color and turgor. No pedal edema. Neurological: No focal deficits. Alert and oriented x3. Results CBC & Chem 7: 07/10/23 09:58 07/10/23 09:58 Labs: Abnormal Lab Results - Last 24 Hours (Table) 07/09/23 07/09/23 07/09/23 Range/Units 16:55 17:00 20:08 WBC (3.8-10.6) k/uL MCV (80.0-100.0) fL Plt Count (150-450) k/uL Neutrophils # (Manual) (1.3-7.7) k/uL Metamyelocytes # (Man) (0) k/uL D-Dimer 0.74 H (<0.60) mg/L FEU Sodium (137-145) mmol/L BUN (7-17) mg/dL Creatinine (0.52-1.04) mg/dL Glucose (74-99) mg/dL POC Glucose (mg/dL) 294 H 270 H (70-110) mg/dL Calcium (8.4-10.2) mg/dL Phosphorus (2.5-4.5) mg/dL Magnesium (1.6-2.3) mg/dL Total Bilirubin (0.2-1.3) mg/dL AST (14-36) U/L ALT (4-34) U/L C-Reactive Protein (<1.0) mg/dL Total Protein (6.3-8.2) g/dL Albumin (3.5-5.0) g/dL Urine Appearance (Clear) Urine Protein (Negative) Urine Glucose (UA) (Negative) Urine Blood (Negative) Urine Bilirubin (Negative) Urine Mucus (None) /hpf 07/10/23 07/10/23 07/10/23 Range/Units 06:01 09:58 09:58 WBC 11.5 H (3.8-10.6) k/uL MCV 102.9 H (80.0-100.0) fL Plt Count 132 L (150-450) k/uL Neutrophils # (Manual) 9.50 H (1.3-7.7) k/uL Metamyelocytes # (Man) 0.35 H (0) k/uL D-Dimer (<0.60) mg/L FEU Sodium 135 L (137-145) mmol/L BUN 26 H (7-17) mg/dL Creatinine 1.06 H (0.52-1.04) mg/dL Glucose 333 H (74-99) mg/dL POC Glucose (mg/dL) 263 H (70-110) mg/dL Calcium 8.0 L (8.4-10.2) mg/dL Phosphorus 5.9 H (2.5-4.5) mg/dL Magnesium 1.2 L (1.6-2.3) mg/dL Total Bilirubin 3.7 H (0.2-1.3) mg/dL AST 357 H (14-36) U/L ALT 209 H (4-34) U/L C-Reactive Protein (<1.0) mg/dL Total Protein 6.0 L (6.3-8.2) g/dL Albumin 3.2 L (3.5-5.0) g/dL Urine Appearance (Clear) Urine Protein (Negative) Urine Glucose (UA) (Negative) Urine Blood (Negative) Urine Bilirubin (Negative) Urine Mucus (None) /hpf 07/10/23 07/10/23 07/10/23 Range/Units 09:58 11:06 11:44 WBC (3.8-10.6) k/uL MCV (80.0-100.0) fL Plt Count (150-450) k/uL Neutrophils # (Manual) (1.3-7.7) k/uL Metamyelocytes # (Man) (0) k/uL D-Dimer (<0.60) mg/L FEU Sodium (137-145) mmol/L BUN (7-17) mg/dL Creatinine (0.52-1.04) mg/dL Glucose (74-99) mg/dL POC Glucose (mg/dL) 352 H (70-110) mg/dL Calcium (8.4-10.2) mg/dL Phosphorus (2.5-4.5) mg/dL Magnesium (1.6-2.3) mg/dL Total Bilirubin (0.2-1.3) mg/dL AST (14-36) U/L ALT (4-34) U/L C-Reactive Protein 4.9 H (<1.0) mg/dL Total Protein (6.3-8.2) g/dL Albumin (3.5-5.0) g/dL Urine Appearance Cloudy H (Clear) Urine Protein 1+ H (Negative) Urine Glucose (UA) 4+ H (Negative) Urine Blood Moderate H (Negative) Urine Bilirubin 1+ H (Negative) Urine Mucus Rare H (None) /hpf Comments: Abdominal ultrasound reports severe hepatic steatosis. Related with LFTs, lipid profile, patient risk factors. Appropriate management recommended. Main pancreatic duct mildly dilated at 3.7 mm. This may be chronic for the patient. Correlate with amylase and lipase levels. Short interval follow-up ultrasound in 2 to 3 months to reassess. Assessment and Plan (1) Elevated LFTs Narrative/Plan: 72-year-old female transferred for chest pain and NSTEMI with who underwent cardiac catheterization with mild disease found and medical management recommended. Patient was a transfer and reported as chest pain however she states that it was mostly right upper quadrant pain under the breastbone. She was concerned it was a pulmonary embolism as she has a history of a PE in the past. Pain had subsided but then last night she has pain again in that right upper quadrant that radiated to her back. She no longer has any pain however she did have normal LFTs on admission with rapid increase today. Abdominal ultrasound reports the main pancreatic duct mildly dilated however this may be chronic and unrelated. Repeat amylase and lipase pending. Possible etiologies is acute hepatitis possibly related to hypoperfusion or medication. Also need to consider possible biliary obstruction. Will repeat labs tomorrow. CT abdo men pelvis ordered for infectious diseases patient had a one-time spike in her temp. Also reported severe hepatic steatosis on gallbladder ultrasound however no previous knowledge of liver disease. No recent changes in medication. Will reevaluate labs tomorrow, CT abdomen pelvis and consider possible MRCP versus ERCP if indicated. Current Visit: Yes Status: Acute Code(s): R79.89 - OTHER SPECIFIED ABNORMAL FINDINGS OF BLOOD CHEMISTRY SNOMED Code(s): 299078984 (2) Right upper quadrant pain Current Visit: Yes Status: Acute Code(s): R10.11 - RIGHT UPPER QUADRANT PAIN SNOMED Code(s): 868356157 (3) NSTEMI (non-ST elevated myocardial infarction) Current Visit: Yes Status: Acute Code(s): I21.4 - NON-ST ELEVATION (NSTEMI) MYOCARDIAL INFARCTION SNOMED Code(s): 46982272 (4) History of pulmonary embolism Current Visit: Yes Status: Acute Code(s): Z86.711 - PERSONAL HISTORY OF PULMONARY EMBOLISM SNOMED Code(s): 181326184 (5) Diabetes mellitus Current Visit: Yes Status: Acute Code(s): E11.9 - TYPE 2 DIABETES MELLITUS WITHOUT COMPLICATIONS SNOMED Code(s): 55985947 Plan: 1. Continue symptomatic and supportive care 2. Diet as tolerated 3. Repeat amylase and lipase 4. Daily CBC, CMP 5. CT abdomen pelvis pending 6. Protonix 40 mg GI prophylaxis 7. Further recommendations forthcoming per clinical course Thank you for this consultation, we will continue to follow. Dr. Randall Ramos I agree with the dictator's note, documented as a scribe by Alice Mensah.
[2023-07-10 13:44] LABS: Amylase 38 U/L (30-110); Lipase 54 U/L (23-300)
[2023-07-10] MEDS: IOPAMIDOL CONTRAST (ORAL USE) VIAL PO PRN (14:04)
[2023-07-10] MEDS: DILTIAZEM ORAL 30 MG TAB PO SCH (14:06)
[2023-07-10] MEDS: MAGNESIUM SULFATE-D5W PMX 1 GM in DEXTROSE/WATER 1 100ML.BAG IVPB SCH (14:55)
--- NOTE | 2023-07-10 16:18 | CT ---
EXAMINATION TYPE: CT abdomen pelvis wo con DATE OF EXAM: 07/10/2023 COMPARISON: None HISTORY: 72-year-old female Fever, right upper quadrant abdominal pain CT DLP: 870.1 mGycm. Automated exposure control for dose reduction was used. TECHNIQUE: Contiguous axial scanning of the abdomen and pelvis without IV contrast. Coronal and sagit yeyo reconstructions performed. FINDINGS: Heart normal size of pericardial effusion. Some patchy opacity in the right base and reticular densit y in the left base. No pleural effusion. There is a small hiatal hernia. Liver enlarged at 18.7 cm. Diffuse low-attenuation of the hepatic parenchyma. Gallbladder, adrenal glands, kidneys, spleen with small hilar splenule, and pancreas show no gross in terbody bony noncontrast CT. No dilated small bowel, free fluid, or free air. There is mild overall stool burden with oral contrast progressing to the rectum. Scattered mild diver ticular change along the left side of the colon. No pericolic inflammatory change. Scattered retroperitoneal lymph nodes throughout the abdomen measuring up to 1.1 cm. Bladder nondistended. Uterus is anteverted. Both ovaries are visualized. No abnormal fluid collection in the pelvis or pelvic lymphadenopathy. Hypertrophic facet arthropathy in lower lumbar spine with degenerative grade 1 anterolisthesis L4-L5 and L5-S1. Mild degenerative change of the hips. IMPRESSION: 1. Hepatomegaly at 18.7 cm with severe hepatic steatosis. Correlate with LFTs, lipid profile, and pa tient risk factors. 2. Some patchy density at the periphery of the right greater than left lung bases. Correlate with r espiratory symptoms to exclude early pneumonia/infectious infiltrate. 3. Scattered mildly enlarged retroperitoneal lymph nodes measuring up to 1.1 cm. These may be reacti ve. Recommend 2-3 month follow-up CT to exclude other etiologies such as early lymphoma. 4. Small hiatal hernia.
[2023-07-10 16:37] LABS: Glucose,Whole Blood 221 mg/dL (70-110)
[2023-07-10] MEDS: HEPARIN SODIUM,PORCINE 5,000 UNIT/ML 1 ML VIAL SQ SCH (17:05)
[2023-07-10] MEDS: INSULIN ASPART (NovoLOG) 100 UNIT/ML VIAL SQ SCH (17:55)
[2023-07-10 20:21] LABS: Glucose,Whole Blood 194 mg/dL (70-110)
--- NOTE | 2023-07-10 22:22 | P.CONS ---
History of Present Illness - Reason for Consult Consult date: 07/10/23 - History of Present Illness Patient is a 72-year-old female past medical history significant for diabetes mellitus hypertension current everyday smoker presented to the outside facility complaining of right-sided chest pain under the right breast area patient symptom has been going on for about a day patient mention she did have a history of blood clots and she presented to the hospital to make sure she does not have any blood clot currently also have some symptoms of heartburn and has taken Gas-X multiple times patient was evaluated outside facility and apparently patient did have a CT angiogram of the chest that was negative for PE patient noticed to have elevated troponin with the patient was transferred to [facility] ER has been evaluated by cardiology and did have a cardiac cath mild disease involving the left main no stenting was done patient did spike a fever around midnight of 101 F prompting this consultation patient did have normal white count admission however white count is up to 11.5 today BUN/creatinine has been mildly elevated and the patient did have elevated liver enzymes procalcitonin 8.49 patient did have a penicillin and sulfa allergy infectious was consulted for further management of antibiotic therapy Past Medical History Past Medical History: Diabetes Mellitus, Hypertension History of Any Multi-Drug Resistant Organisms: None Reported Past Surgical History: Section Additional Past Surgical History / Comment(s): tooth extracted Past Anesthesia/Blood Transfusion Reactions: No Reported Reaction Smoking Status: Current every day smoker Past Alcohol Use History: None Reported Past Drug Use History: None Reported - Past Family History Mother Family Medical History: Diabetes Mellitus Father Additional Family Medical History / Comment(s): alzhiemers Medications and Allergies Home Medications Medication Instructions Recorded Confirmed Type Citalopram Hydrobromide [CeleXA] 20 mg PO DAILY 07/09/23 07/09/23 History Doxycycline Hyclate 100 mg PO BID 07/09/23 07/09/23 History Fluticasone/Umeclidin/Vilanter 1 puff INHALATION RT-DAILY 07/09/23 07/09/23 History [Trelegy Ellipta 100-62.5-25] Ibuprofen [Motrin] 600 mg PO Q6H PRN 07/09/23 07/09/23 History Insulin Glargine,Hum.rec.anlog 20 units SQ AC-SUPPER 07/09/23 07/09/23 History [Lantus Solostar Pen] Lisinopril-Hctz 10-12.5 mg 1 tab PO DAILY 07/09/23 07/09/23 History [Zestoretic 10-12.5] glipiZIDE [Glucotrol] 10 mg PO DAILY 07/09/23 07/09/23 History metFORMIN HCL ER [Glucophage XR] 500 mg PO DAILY 07/09/23 07/09/23 History Allergies Allergy/AdvReac Type Severity Reaction Status Date / Time sulfamethoxazole Allergy Unknown Verified 07/09/23 07:29 [From Bactrim] trimethoprim [From Bactrim] Allergy Unknown Verified 07/09/23 07:29 Penicillins AdvReac Nausea & Verified 07/09/23 07:29 Vomiting Physical Exam Vitals: Vital Signs Temp Pulse Resp BP BP Pulse Ox 07/10/23 04:00 98.3 F 114 H 18 110/67 95 07/10/23 02:00 126 H 18 07/10/23 01:33 99.1 F 07/10/23 00:24 94 L 07/10/23 00:00 101 F H 126 H 18 159/79 94 L 07/09/23 20:00 97.6 F 126 H 18 172/88 92 L 07/09/23 18:10 94 20 122/82 95 07/09/23 17:10 98 20 126/84 95 07/09/23 16:40 98.1 F 93 20 134/79 95 07/09/23 16:15 92 16 100/59 95 07/09/23 15:58 89 16 106/58 95 07/09/23 15:43 89 16 117/64 95 07/09/23 15:28 99 16 103/77 95 07/09/23 15:13 16 101/68 93 L 07/09/23 12:00 98.2 F 97 16 124/89 93 L Intake and Output 07/09/23 07/10/23 07/10/23 22:59 06:59 14:59 Intake Total 268 180 Balance 268 180 Intake: Intake, IV Titration 150 Amount Sodium Chloride 0.9% 1, 150 000 ml @ 75 mls/hr IV . [id number] [facility] Rx#:[id number] Oral 118 180 Other: Voiding Method Toilet Toilet # Voids 1 2 1 # Bowel Movements 2 Results CBC & Chem 7: 07/11/23 09:54 07/11/23 09:54 Labs: Abnormal Lab Results - Last 24 Hours (Table) 07/09/23 07/09/23 07/09/23 Range/Units 10:56 10:57 11:56 MCV 102.0 H (80.0-100.0) fL APTT 70.6 H (22.0-30.0) sec D-Dimer (<0.60) mg/L FEU POC Glucose (mg/dL) 299 H (70-110) mg/dL 07/09/23 07/09/23 07/09/23 Range/Units 16:55 17:00 20:08 MCV (80.0-100.0) fL APTT (22.0-30.0) sec D-Dimer 0.74 H (<0.60) mg/L FEU POC Glucose (mg/dL) 294 H 270 H (70-110) mg/dL 07/10/23 Range/Units 06:01 MCV (80.0-100.0) fL APTT (22.0-30.0) sec D-Dimer (<0.60) mg/L FEU POC Glucose (mg/dL) 263 H (70-110) mg/dL Assessment and Plan Plan: 1patient with sepsis in this patient who did have a fever elevated white count came to the hospital for the right upper quadrant/right lower chest cage pain and this patient was noted to be tender right upper quadrant area also have elevated liver enzymes concern for cholangitis/cholecystitis 2-patient with multiple antibiotic ALLERGIES that would limit the number of antibiotic safe to use 3-elevated creatinine 4-we will obtain CT of abdominal pelvis with oral contrast only to better define right upper quadrant abnormality 5-patient has been empirically started on Rocephin while waiting for the workup to be completed We will follow on clinical condition and cultures to further adjust medication if needed Thank you for this consultation we will follow the patient along with you Dictation was produced using [employer] dictation software. please excuse any grammatical, word or spelling errors. Time with Patient: Greater than 30
--- NOTE | 2023-07-11 02:18 | PN ---
PROGRESS NOTE SUBJECTIVE: This is a 72-year-old white female. Had abdominal pain, nausea, and vomiting last night after she ate. She has history of bad COPD with breathing. She vapes at home. She has overall stool burden, mild to the rectum, diverticular changes, some rectal peritoneal lymph node swelling. Bladder looks okay. Small hiatal hernia, liver enlarged to 18.7 cm. Some patchy opacities in the right left lower lungs. Correlate respiratory symptoms, possible pneumonia and infiltrate, possibly order lactulose for constipation and wait for surgical consultation prior to going home. She is on Rocephin 2 g daily. Currently, she probably has community-acquired pneumonia, COPD, recurrent chronic abdominal pain, chest pain, VA, minimal changes on heart cath. Chronic renal insufficiency stage IIIA diabetes. Sugars in the 200s. Bilirubin are 3.7 which was high, is 1.2. Wait for surgical consult as well as the GI consult for elevated bilirubin. PROGNOSIS: Guarded. MMODL / IJN: [id number] /
[2023-07-11 06:17] LABS: Glucose,Whole Blood 123 mg/dL (70-110)
[2023-07-11 11:03] LABS: Basophils % (A) 0 %; Eosinophils # (A) 0.5 k/uL (0-0.7); Eosinophils % (A) 6 %; HGB 12.7 gm/dL (11.4-16.0); Lymphocytes # (A) 0.8 k/uL (1.0-4.8); Lymphocytes % (A) 10 %; MCH 33.8 pg (25.0-35.0); MCHC 33.4 g/dL (31.0-37.0); MCV 101.5 fL (80.0-100.0); Macrocytosis Slight; Mean Platelet Volume 12.9; Monocytes # (A) 0.4 k/uL (0-1.0); Monocytes % (A) 5 %; Neutrophils # (A) 6.6 k/uL (1.3-7.7); Neutrophils % (A) 78 %; Platelet Count 129 k/uL (150-450); RBC 3.74 m/uL (3.80-5.40); WBC 8.5 k/uL (3.8-10.6)
[2023-07-11 11:19] LABS: Glucose,Whole Blood 129 mg/dL (70-110)
[2023-07-11 12:09] LABS: ALT 157 U/L (4-34); AST 146 U/L (14-36); African American GFR (CKD) 68 (>60 ml/min/1.73 sqM); Albumin 2.9 g/dL (3.5-5.0); Alkaline Phosphatase 91 U/L (38-126); Anion Gap 7 mmol/L; Blood Urea Nitrogen 23 mg/dL (7-17); Calcium 7.9 mg/dL (8.4-10.2); Carbon Dioxide 26 mmol/L (22-30); Chloride 101 mmol/L (98-107); Glucose 134 mg/dL (74-99); Lipase 60 U/L (23-300); Non-African American GFR(CKD) 59 (>60 ml/min/1.73 sqM); Potassium 3.8 mmol/L (3.5-5.1); Sodium 134 mmol/L (137-145); Total Bilirubin 3.3 mg/dL (0.2-1.3); Total Protein 5.6 g/dL (6.3-8.2)
--- NOTE | 2023-07-11 12:37 | P.PN ---
Subjective HISTORY OF PRESENT ILLNESS: This is a 72-year-old female with a past medical history significant for hypertension, diabetes, and pulmonary embolism. 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 We have been asked to see the patient in consultation for elevated troponins. Patient examined at the bedside in the emergency room. Patient initially presented to [facility] yesterday with a chief complaint of pain. Patient states the pain was underneath her right breast. She states that 2 days ago she had an episode of really bad heartburn and was taking Gas-X multiple times. She states the Gas-X would help for a couple hours and then the pain would come back. She continues to report right upper quadrant abdominal pain this morning. She denies having any chest pain or pressure. She does report a family history of CAD and states that her brother and sister both suddenly approximately 10 years ago. She is a current cigarette smoker. DIAGNOSTICS: - EKG reveals sinus mechanism with nonspecific ST-T wave changes - Laboratory data: WBC 7.0. Hemoglobin 14.7. Platelet count 175. Sodium 137. Potassium 4.4. BUN 20. Creatinine 0.82. Troponin 0.037. - Current home cardiac medications include lisinoprilhydrochlorothiazide 10- 12.5 mg daily. 07/10/2023 Patient is status postcardiac catheterization revealing mild disease of the left main. Normal left-sided filling pressures. Medical management was recommended. Patient examined this morning at the bedside. Patient denies chest pain or pressure. Patient does have wheezing upon examination today and a cough. Abdominal ultrasound completed revealing severe hepatic steatosis and main pancreatic duct dilated 3.7 mm. 07/11/2023 Patient examined this morning at bedside. Patient denies any chest pain or pressure. She denies shortness of breath. Patient did have a fever this morning of 100.5. Blood pressure 101/67. PHYSICAL EXAM: VITAL SIGNS: Reviewed. GENERAL: Well-developed in no acute distress. HEENT: Head is normocephalic. Pupils are equal, round. Sclerae anicteric. Mucous membranes of the mouth are moist. Neck supple. No JVD or thyromegaly LUNGS: Respirations even and unlabored. Lungs with expiratory wheezing noted. HEART: Regular rate and rhythm. S1 and S2 heard. ABDOMEN: Soft. Nondistended. Right upper quadrant tender upon palpation. EXTREMITIES: Normal range of motion. No clubbing or cyanosis. Peripheral pulses intact. No lower extremity edema NEUROLOGIC: Awake and alert. Oriented x 3. ASSESSMENT: Right upper quadrant abdominal pain Elevated troponin of unclear significance Status postcardiac catheterization revealing mild disease of the left main Hypertension Diabetes History of pulmonary embolism Family history of CAD Nicotine dependence Transaminitis Hyperbilirubinemia Fever PLAN: Statin discontinued secondary to transaminitis Continue additional cardiac medications General surgery and GI are following. Smoking cessation recommended. Patient started on nicotine patch. Patient to be referred to [place] quit line upon discharge No further inpatient recommendations from a cardiac standpoint We will sign off. Please reconsult if needed. Nurse practitioner note has been reviewed by physician. Signing provider agrees with the documented findings, assessment, and plan of care documented by GENERATION TECHNOLOGIST as a scribe. Objective - Vital Signs Vital signs: Vital Signs Temp 98.7 F 07/11/23 11:17 Pulse 79 07/11/23 12:33 Resp 16 07/11/23 12:33 BP 92/59 07/11/23 12:33 Pulse Ox 92 L 07/11/23 11:17 FiO2 Intake & Output 07/10/23 07/11/23 07/11/23 18:59 06:59 18:59 Intake Total 540 240 Output Total 400 Balance 140 240 Intake: Oral 540 240 Output: Urine 400 Other: Voiding Method Toilet Toilet Toilet # Voids 1 3 - Labs CBC & Chem 7: 07/11/23 09:54 07/11/23 09:54 Labs: Abnormal Lab Results - Last 24 Hours (Table) 07/10/23 07/10/23 07/10/23 Range/Units 09:58 09:58 16:35 RBC (3.80-5.40) m/uL MCV (80.0-100.0) fL Plt Count (150-450) k/uL Lymphocytes # (1.0-4.8) k/uL Sodium (137-145) mmol/L BUN (7-17) mg/dL Glucose (74-99) mg/dL POC Glucose (mg/dL) 221 H (70-110) mg/dL Hemoglobin A1c 8.9 H (<=6.0) % Calcium (8.4-10.2) mg/dL Total Bilirubin (0.2-1.3) mg/dL AST (14-36) U/L ALT (4-34) U/L Total Protein (6.3-8.2) g/dL Albumin (3.5-5.0) g/dL Procalcitonin 8.49 H (0.02-0.09) ng/mL 07/10/23 07/11/23 07/11/23 Range/Units 20:15 06:02 09:54 RBC 3.74 L (3.80-5.40) m/uL MCV 101.5 H (80.0-100.0) fL Plt Count 129 L (150-450) k/uL Lymphocytes # 0.8 L (1.0-4.8) k/uL Sodium (137-145) mmol/L BUN (7-17) mg/dL Glucose (74-99) mg/dL POC Glucose (mg/dL) 194 H 123 H (70-110) mg/dL Hemoglobin A1c (<=6.0) % Calcium (8.4-10.2) mg/dL Total Bilirubin (0.2-1.3) mg/dL AST (14-36) U/L ALT (4-34) U/L Total Protein (6.3-8.2) g/dL Albumin (3.5-5.0) g/dL Procalcitonin (0.02-0.09) ng/mL 07/11/23 07/11/23 Range/Units 09:54 11:17 RBC (3.80-5.40) m/uL MCV (80.0-100.0) fL Plt Count (150-450) k/uL Lymphocytes # (1.0-4.8) k/uL Sodium 134 L (137-145) mmol/L BUN 23 H (7-17) mg/dL Glucose 134 H (74-99) mg/dL POC Glucose (mg/dL) 129 H (70-110) mg/dL Hemoglobin A1c (<=6.0) % Calcium 7.9 L (8.4-10.2) mg/dL Total Bilirubin 3.3 H (0.2-1.3) mg/dL AST 146 H (14-36) U/L ALT 157 H (4-34) U/L Total Protein 5.6 L (6.3-8.2) g/dL Albumin 2.9 L (3.5-5.0) g/dL Procalcitonin (0.02-0.09) ng/mL Microbiology - Last 24 Hours (Table) 07/10/23 00:02 Blood Culture - Preliminary Blood
--- NOTE | 2023-07-11 14:56 | P.PN ---
Subjective Progress Note Date: 07/11/23 Principal diagnosis: Reason for follow-up is fever possible pneumonia Patient is a 72-year-old female past medical history significant for diabetes mellitus hypertension current everyday smoker presented to the outside facility complaining of right-sided chest pain under the right breast area patient did have a CT angio and therapy stated, patient did spike a fever p rompting this consultation. On today's evaluation that is 07/11/2023, patient did have improvement her fever pattern with a low-grade fever 100.5 F this morning patient is breathing comfortably and is currently on room air, patient denies having any worsening cough no chest pain shortness of breath, patient denies nausea vomiting or diarrhea and no abdominal pain. Patient white count is 8.5, creatinine 0.97 liver enzymes still elevated procalcitonin was 8.49 Objective - Vital Signs Vital signs: Vital Signs Temp 98.7 F 07/11/23 11:17 Pulse 92 07/11/23 14:12 Resp 16 07/11/23 14:12 BP 92/59 07/11/23 12:33 Pulse Ox 92 L 07/11/23 11:17 FiO2 Intake & Output 07/10/23 07/11/23 07/11/23 18:59 06:59 18:59 Intake Total 540 358 Output Total 400 Balance 140 358 Intake: Oral 540 358 Output: Urine 400 Other: Voiding Method Toilet Toilet Toilet # Voids 1 3 1 - Exam GENERAL DESCRIPTION: An elderly female up in bed in no distress RESPIRATORY SYSTEM: Unlabored breathing , decreased breath sounds at bases HEART: S1 S2 regular rate and rhythm , ABDOMEN: Soft , no tenderness EXTREMITIES: No edema feet - Labs CBC & Chem 7: 07/11/23 09:54 07/11/23 09:54 Labs: Abnormal Lab Results - Last 24 Hours (Table) 07/10/23 07/10/23 07/10/23 Range/Units 09:58 09:58 16:35 RBC (3.80-5.40) m/uL MCV (80.0-100.0) fL Plt Count (150-450) k/uL Lymphocytes # (1.0-4.8) k/uL Sodium (137-145) mmol/L BUN (7-17) mg/dL Glucose (74-99) mg/dL POC Glucose (mg/dL) 221 H (70-110) mg/dL Hemoglobin A1c 8.9 H (<=6.0) % Calcium (8.4-10.2) mg/dL Total Bilirubin (0.2-1.3) mg/dL AST (14-36) U/L ALT (4-34) U/L Total Protein (6.3-8.2) g/dL Albumin (3.5-5.0) g/dL Procalcitonin 8.49 H (0.02-0.09) ng/mL 07/10/23 07/11/23 07/11/23 Range/Units 20:15 06:02 09:54 RBC 3.74 L (3.80-5.40) m/uL MCV 101.5 H (80.0-100.0) fL Plt Count 129 L (150-450) k/uL Lymphocytes # 0.8 L (1.0-4.8) k/uL Sodium (137-145) mmol/L BUN (7-17) mg/dL Glucose (74-99) mg/dL POC Glucose (mg/dL) 194 H 123 H (70-110) mg/dL Hemoglobin A1c (<=6.0) % Calcium (8.4-10.2) mg/dL Total Bilirubin (0.2-1.3) mg/dL AST (14-36) U/L ALT (4-34) U/L Total Protein (6.3-8.2) g/dL Albumin (3.5-5.0) g/dL Procalcitonin (0.02-0.09) ng/mL 07/11/23 07/11/23 Range/Units 09:54 11:17 RBC (3.80-5.40) m/uL MCV (80.0-100.0) fL Plt Count (150-450) k/uL Lymphocytes # (1.0-4.8) k/uL Sodium 134 L (137-145) mmol/L BUN 23 H (7-17) mg/dL Glucose 134 H (74-99) mg/dL POC Glucose (mg/dL) 129 H (70-110) mg/dL Hemoglobin A1c (<=6.0) % Calcium 7.9 L (8.4-10.2) mg/dL Total Bilirubin 3.3 H (0.2-1.3) mg/dL AST 146 H (14-36) U/L ALT 157 H (4-34) U/L Total Protein 5.6 L (6.3-8.2) g/dL Albumin 2.9 L (3.5-5.0) g/dL Procalcitonin (0.02-0.09) ng/mL Microbiology - Last 24 Hours (Table) 07/10/23 00:02 Blood Culture - Preliminary Blood Assessment and Plan (1) Pneumonia Current Visit: Yes Status: Acute Code(s): J18.9 - PNEUMONIA, UNSPECIFIED ORGANISM SNOMED Code(s): 524565259 (2) Allergy to multiple antibiotics Current Visit: Yes Status: Acute Code(s): Z88.1 - ALLERGY STATUS TO OTHER ANTIBIOTIC AGENTS SNOMED Code(s): 261399756 (3) Elevated LFTs Current Visit: Yes Status: Acute Code(s): R79.89 - OTHER SPECIFIED ABNORMAL FINDINGS OF BLOOD CHEMISTRY SNOMED Code(s): 477817352 Plan: 1patient with sepsis in this patient who did have a fever elevated white count came to the hospital for the right upper quadrant/right lower chest cage pain and this patient was noted to be tender right upper quadrant area also have elevated liver enzymes concern for cholangitis/cholecystitis 2-patient with multiple antibiotic ALLERGIES that would limit the number of antibiotic safe to use 3-patient did have CT of abdominal pelvis with oral contrast only did show some hepatomegaly and evidence of right lower lobe infiltrate suspicious for pneumonia 5-patient fever has responded to Rocephin which will be continued while waiting for the workup to be completed Dictation was produced using [employer] dictation software. please excuse any grammatical, word or spelling errors. Time with Patient: Less than 30
--- NOTE | 2023-07-11 15:14 | P.PN ---
Subjective Progress Note Date: 07/11/23 Principal diagnosis: Elevated LFTs This is a pleasant 72-year-old female with a past medical history including hypertension, diabetes and pulmonary embolism. Patient was seen at [facility] which she states was for right upper quadrant chest/abdominal pain underneath her breast. She states that she thought that it was a blood clot because she has a history of a previous pulmonary embolism and states it felt the same. She had elevated troponins and was transferred to [facility] for further workup and cardiology evaluation. She had EKG changes with nonspecific ST-T wave changes. She underwent cardiac catheterization with findings of mild disease involving the left main, normal left-sided filling pressure. Cardiology recommended continuing medical treatment. She had no chest pain on admission. She was stating that it was more in her right upper quadrant. They did an ultrasound of the abdomen that reported severe hepatic steatosis, main pancreatic duct mildly dilated 3.7 mm may be chronic correlate with amylase and lipase. On admission she had normal LFTs however today she did have increase in her LFTs. Gastroenterology was consulted by general surgery for dilated pancreatic duct. Patient denies any abdominal pain at this time. She states that last night she had abdominal pain again in that right upper quadrant wraps around to her back. She states that she had some fever and chills associated with it. Today she states she is just tired. She denies shortness of breath, chest pain, abdominal pain, nausea or vomiting. She denies any history of liver disease. States that a few years back she did have Bactrim for urinary tract infection which did cause elevated liver enzymes and states she was transferred to [facility] and they did a full workup on her however stated it was just related to medication. She denies any history of alcohol use or abuse. And no known history of hepatic steatosis. She denies any recent new medications. She was started on Rocephin but that was only earlier this morning for fever. Patient spiked a one-time temp of 101.0. She has been afebrile since midnight. Infectious disease was consulted for fever, they ordered a CT of the abdomen pelvis. Normal LFTs on admission as well as amylase and lipase. Repeat labs today WBC 11.5 hemoglobin 13.2 hematocrit 40.3 platelet count 132,000 INR 1.0 sodium 135 potassium 4.6 BUN 26 creatinine 1.06 magnesium 1.2 total bilirubin 3.7 AST 357 ALT 209 alkaline phosphatase 65 07/11/2023 Patient seen and examined today as a follow-up. She continues to deny any abdominal pain, no nausea or vomiting. She just states that she is tired. Patient does state that she has had a tooth abscess and has had dental work and was on doxycycline twice recently with the last dose ending when she was admitted here. Repeat LFTs today continue to be elevated, total bilirubin 3.3 AST 146 ALT [address] abdomen pelvis without contrast reported hepatomegaly with severe hepatic steatosis. Patchy density of the periphery of right greater than left lung bases. Scattered mildly enlarged retroperitoneal lymph nodes. Small hiatal hernia. Objective - Vital Signs Vital signs: Vital Signs Temp 100.5 F H 07/11/23 09:03 Pulse 98 07/11/23 09:03 Resp 19 07/11/23 09:03 BP 101/67 07/11/23 09:03 Pulse Ox 93 L 07/11/23 09:03 FiO2 Intake & Output 07/10/23 07/11/23 07/11/23 18:59 06:59 18:59 Intake Total 540 240 Output Total 400 Balance 140 240 Intake: Oral 540 240 Output: Urine 400 Other: Voiding Method Toilet Toilet Toilet # Voids 1 3 - Exam General appearance: The patient is alert, oriented, appears in no acute distress. HET: Head is normocephalic and atraumatic. Conjunctiva pink. Sclera anicteric. Neck: Supple without lymphadenopathy. Abdomen: Soft, nontender, nondistended with bowel sounds. No guarding or rigidity. Extremities: Normal skin color and turgor. No pedal edema Skin: No rashes, no jaundice Neurological: No focal deficits. Alert and oriented. - Labs CBC & Chem 7: 07/11/23 09:54 07/11/23 09:54 Labs: Abnormal Lab Results - Last 24 Hours (Table) 07/10/23 07/10/23 07/10/23 Range/Units 09:58 09:58 09:58 WBC 11.5 H (3.8-10.6) k/uL MCV 102.9 H (80.0-100.0) fL Plt Count 132 L (150-450) k/uL Neutrophils # (Manual) 9.50 H (1.3-7.7) k/uL Metamyelocytes # (Man) 0.35 H (0) k/uL Sodium 135 L (137-145) mmol/L BUN 26 H (7-17) mg/dL Creatinine 1.06 H (0.52-1.04) mg/dL Glucose 333 H (74-99) mg/dL POC Glucose (mg/dL) (70-110) mg/dL Hemoglobin A1c 8.9 H (<=6.0) % Calcium 8.0 L (8.4-10.2) mg/dL Phosphorus 5.9 H (2.5-4.5) mg/dL Magnesium 1.2 L (1.6-2.3) mg/dL Total Bilirubin 3.7 H (0.2-1.3) mg/dL AST 357 H (14-36) U/L ALT 209 H (4-34) U/L C-Reactive Protein (<1.0) mg/dL Total Protein 6.0 L (6.3-8.2) g/dL Albumin 3.2 L (3.5-5.0) g/dL Procalcitonin (0.02-0.09) ng/mL Urine Appearance (Clear) Urine Protein (Negative) Urine Glucose (UA) (Negative) Urine Blood (Negative) Urine Bilirubin (Negative) Urine Mucus (None) /hpf 07/10/23 07/10/23 07/10/23 Range/Units 09:58 09:58 11:06 WBC (3.8-10.6) k/uL MCV (80.0-100.0) fL Plt Count (150-450) k/uL Neutrophils # (Manual) (1.3-7.7) k/uL Metamyelocytes # (Man) (0) k/uL Sodium (137-145) mmol/L BUN (7-17) mg/dL Creatinine (0.52-1.04) mg/dL Glucose (74-99) mg/dL POC Glucose (mg/dL) (70-110) mg/dL Hemoglobin A1c (<=6.0) % Calcium (8.4-10.2) mg/dL Phosphorus (2.5-4.5) mg/dL Magnesium (1.6-2.3) mg/dL Total Bilirubin (0.2-1.3) mg/dL AST (14-36) U/L ALT (4-34) U/L C-Reactive Protein 4.9 H (<1.0) mg/dL Total Protein (6.3-8.2) g/dL Albumin (3.5-5.0) g/dL Procalcitonin 8.49 H (0.02-0.09) ng/mL Urine Appearance Cloudy H (Clear) Urine Protein 1+ H (Negative) Urine Glucose (UA) 4+ H (Negative) Urine Blood Moderate H (Negative) Urine Bilirubin 1+ H (Negative) Urine Mucus Rare H (None) /hpf 07/10/23 07/10/23 07/10/23 Range/Units 11:44 16:35 20:15 WBC (3.8-10.6) k/uL MCV (80.0-100.0) fL Plt Count (150-450) k/uL Neutrophils # (Manual) (1.3-7.7) k/uL Metamyelocytes # (Man) (0) k/uL Sodium (137-145) mmol/L BUN (7-17) mg/dL Creatinine (0.52-1.04) mg/dL Glucose (74-99) mg/dL POC Glucose (mg/dL) 352 H 221 H 194 H (70-110) mg/dL Hemoglobin A1c (<=6.0) % Calcium (8.4-10.2) mg/dL Phosphorus (2.5-4.5) mg/dL Magnesium (1.6-2.3) mg/dL Total Bilirubin (0.2-1.3) mg/dL AST (14-36) U/L ALT (4-34) U/L C-Reactive Protein (<1.0) mg/dL Total Protein (6.3-8.2) g/dL Albumin (3.5-5.0) g/dL Procalcitonin (0.02-0.09) ng/mL Urine Appearance (Clear) Urine Protein (Negative) Urine Glucose (UA) (Negative) Urine Blood (Negative) Urine Bilirubin (Negative) Urine Mucus (None) /hpf 07/11/23 Range/Units 06:02 WBC (3.8-10.6) k/uL MCV (80.0-100.0) fL Plt Count (150-450) k/uL Neutrophils # (Manual) (1.3-7.7) k/uL Metamyelocytes # (Man) (0) k/uL Sodium (137-145) mmol/L BUN (7-17) mg/dL Creatinine (0.52-1.04) mg/dL Glucose (74-99) mg/dL POC Glucose (mg/dL) 123 H (70-110) mg/dL Hemoglobin A1c (<=6.0) % Calcium (8.4-10.2) mg/dL Phosphorus (2.5-4.5) mg/dL Magnesium (1.6-2.3) mg/dL Total Bilirubin (0.2-1.3) mg/dL AST (14-36) U/L ALT (4-34) U/L C-Reactive Protein (<1.0) mg/dL Total Protein (6.3-8.2) g/dL Albumin (3.5-5.0) g/dL Procalcitonin (0.02-0.09) ng/mL Urine Appearance (Clear) Urine Protein (Negative) Urine Glucose (UA) (Negative) Urine Blood (Negative) Urine Bilirubin (Negative) Urine Mucus (None) /hpf Microbiology - Last 24 Hours (Table) 07/10/23 00:02 Blood Culture - Preliminary Blood Assessment and Plan (1) Elevated LFTs Narrative/Plan: 72-year-old female transferred for chest pain and NSTEMI with who underwent cardiac catheterization with mild disease found and medical management recommended. Patient was a transfer and reported as chest pain however she states that it was mostly right upper quadrant pain under the breastbone. She was concerned it was a pulmonary embolism as she has a history of a PE in the past. Pain had subsided but then last night she has pain again in that right upper quadrant that radiated to her back. She no longer has any pain however she did have normal LFTs on admission with rapid increase today. Abdominal ultrasound reports the main pancreatic duct mildly dilated however this may be chronic and unrelated. Repeat amylase and lipase pending. Possible etiologies is acute hepatitis possibly related to hypoperfusion or medication. Also need to consider possible biliary obstruction. Will repeat labs tomorrow. CT abdomen pelvis ordered for infectious diseases patient had a one-time spike in her temp. Also reported severe hepatic steatosis on gallbladder ultrasound however no previous knowledge of liver disease. No recent changes in medication. Will reevaluate labs tomorrow, CT abdomen pelvis and consider possible MRCP versus ERCP if indicated. Patient continues with elevated LFTs need to rule out possible choledocholithiasis. Will plan for MRCP. Current Visit: Yes Status: Acute Code(s): R79.89 - OTHER SPECIFIED ABNORMAL FINDINGS OF BLOOD CHEMISTRY SNOMED Code(s): 345535874 (2) Right upper quadrant pain Current Visit: Yes Status: Acute Code(s): R10.11 - RIGHT UPPER QUADRANT PAIN SNOMED Code(s): 351176220 (3) NSTEMI (non-ST elevated myocardial infarction) Current Visit: Yes Status: Acute Code(s): I21.4 - NON-ST ELEVATION (NSTEMI) MYOCARDIAL INFARCTION SNOMED Code(s): 80624944 (4) History of pulmonary embolism Current Visit: Yes Status: Acute Code(s): Z86.711 - PERSONAL HISTORY OF PULMONARY EMBOLISM SNOMED Code(s): 985333521 (5) Diabetes mellitus Current Visit: Yes Status: Acute Code(s): E11.9 - TYPE 2 DIABETES MELLITUS WITHOUT COMPLICATIONS SNOMED Code(s): 90859571 Plan: 1. Continue symptomatic and supportive care 2. Diet as tolerated 3. MRCP ordered 4. Daily CMP 5. CT abdomen pelvis reviewed 6. Protonix 40 mg GI prophylaxis 7. Further recommendations forthcoming per clinical course Thank you for this consultation, we will continue to follow. Dr. Randall Ramos I agree with the dictator's note, documented as a scribe by Alice WIN.
--- NOTE | 2023-07-11 15:24 | P.PN ---
Subjective Progress Note Date: 07/11/23 CHIEF COMPLAINT: Abdominal pain HISTORY OF PRESENT ILLNESS: Patient currently reports no abdominal pain. She has had a bowel movement. She denies any nausea or vomiting. She does complain of sinus congestion and headache. She did have a low-grade temp of 100.5 this morning. GI service following in regards to patient's elevated LFTs. Patient did have a mildly dilated pancreatic duct noted on ultrasound. They have scheduled patient for an MRCP. CT scan abdomen pelvis reporting hepatomegaly with severe hepatic steatosis. Afebrile. WBC 8.5 LFTs trending down. Total bilirubin 3.3 PHYSICAL EXAM: VITAL SIGNS: Reviewed. GENERAL: Well-developed in no acute distress. HEENT: No sclera icterus. Extraocular movements grossly intact. Moist buccal mucosa. Head is atraumatic, normocephalic. ABDOMEN: Soft. Nondistended. Nontender. NEUROLOGIC: Alert and oriented. Cranial nerves II through XII grossly intact. ASSESSMENT: 1. Abdominal pain improved 2. Main pancreatic duct mildly dilated on ultrasound 3. Elevated LFTs and total bilirubin 4. Hypomagnesemia 5. Chest pain and mildly elevated troponin status post heart catheterization with mild coronary artery disease left main. 6. Constipation PLAN: -No surgical intervention planned -Continue supportive care -Continue GI workup -Surgical service will sign off. Please call with any questions or concerns Physician Tile Decorator note has been reviewed by physician. Signing provider agrees with the documented findings, assessment, and plan of care. Objective - Vital Signs Vital signs: Vital Signs Temp 98.7 F 07/11/23 11:17 Pulse 92 07/11/23 14:12 Resp 16 07/11/23 14:12 BP 92/59 07/11/23 12:33 Pulse Ox 92 L 07/11/23 11:17 FiO2 Intake & Output 07/10/23 07/11/23 07/11/23 18:59 06:59 18:59 Intake Total 540 358 Output Total 400 Balance 140 358 Intake: Oral 540 358 Output: Urine 400 Other: Voiding Method Toilet Toilet Toilet # Voids 1 3 1 - Labs CBC & Chem 7: 07/11/23 09:54 07/11/23 09:54 Labs: Abnormal Lab Results - Last 24 Hours (Table) 07/10/23 07/10/23 07/10/23 Range/Units 09:58 09:58 16:35 RBC (3.80-5.40) m/uL MCV (80.0-100.0) fL Plt Count (150-450) k/uL Lymphocytes # (1.0-4.8) k/uL Sodium (137-145) mmol/L BUN (7-17) mg/dL Glucose (74-99) mg/dL POC Glucose (mg/dL) 221 H (70-110) mg/dL Hemoglobin A1c 8.9 H (<=6.0) % Calcium (8.4-10.2) mg/dL Total Bilirubin (0.2-1.3) mg/dL AST (14-36) U/L ALT (4-34) U/L Total Protein (6.3-8.2) g/dL Albumin (3.5-5.0) g/dL Procalcitonin 8.49 H (0.02-0.09) ng/mL 07/10/23 07/11/23 07/11/23 Range/Units 20:15 06:02 09:54 RBC 3.74 L (3.80-5.40) m/uL MCV 101.5 H (80.0-100.0) fL Plt Count 129 L (150-450) k/uL Lymphocytes # 0.8 L (1.0-4.8) k/uL Sodium (137-145) mmol/L BUN (7-17) mg/dL Glucose (74-99) mg/dL POC Glucose (mg/dL) 194 H 123 H (70-110) mg/dL Hemoglobin A1c (<=6.0) % Calcium (8.4-10.2) mg/dL Total Bilirubin (0.2-1.3) mg/dL AST (14-36) U/L ALT (4-34) U/L Total Protein (6.3-8.2) g/dL Albumin (3.5-5.0) g/dL Procalcitonin (0.02-0.09) ng/mL 07/11/23 07/11/23 Range/Units 09:54 11:17 RBC (3.80-5.40) m/uL MCV (80.0-100.0) fL Plt Count (150-450) k/uL Lymphocytes # (1.0-4.8) k/uL Sodium 134 L (137-145) mmol/L BUN 23 H (7-17) mg/dL Glucose 134 H (74-99) mg/dL POC Glucose (mg/dL) 129 H (70-110) mg/dL Hemoglobin A1c (<=6.0) % Calcium 7.9 L (8.4-10.2) mg/dL Total Bilirubin 3.3 H (0.2-1.3) mg/dL AST 146 H (14-36) U/L ALT 157 H (4-34) U/L Total Protein 5.6 L (6.3-8.2) g/dL Albumin 2.9 L (3.5-5.0) g/dL Procalcitonin (0.02-0.09) ng/mL Microbiology - Last 24 Hours (Table) 07/10/23 00:02 Blood Culture - Preliminary Blood
[2023-07-11 16:21] LABS: Glucose,Whole Blood 140 mg/dL (70-110)
[2023-07-11 16:24] LABS: Hepatitis A Antibody IgM Nonreactive (Nonreactive); Hepatitis B Core IgM Nonreactive (Nonreactive); Hepatitis B Surface Antigen Nonreactive (Nonreactive); Hepatitis C IgG Antibody Nonreactive (Nonreactive)
[2023-07-11 20:16] LABS: Glucose,Whole Blood 204 mg/dL (70-110)
[2023-07-12 06:08] LABS: Glucose,Whole Blood 128 mg/dL (70-110)
[2023-07-12] MEDS: ALPRAZolam 0.5 MG TAB PO PRN (11:21)
[2023-07-12 11:25] LABS: ALT 149 U/L (4-34); AST 124 U/L (14-36); African American GFR (CKD) >90 (>60 ml/min/1.73 sqM); Albumin 3.1 g/dL (3.5-5.0); Alkaline Phosphatase 107 U/L (38-126); Anion Gap 7 mmol/L; Blood Urea Nitrogen 14 mg/dL (7-17); Calcium 8.3 mg/dL (8.4-10.2); Carbon Dioxide 22 mmol/L (22-30); Chloride 106 mmol/L (98-107); Glucose 124 mg/dL (74-99); Non-African American GFR(CKD) 85 (>60 ml/min/1.73 sqM); Potassium 4.2 mmol/L (3.5-5.1); Sodium 135 mmol/L (137-145); Total Bilirubin 2.3 mg/dL (0.2-1.3)
--- NOTE | 2023-07-12 11:56 | P.PN ---
Subjective Progress Note Date: 07/12/23 Principal diagnosis: Elevated LFTs This is a pleasant 72-year-old female with a past medical history including hypertension, diabetes and pulmonary embolism. Patient was seen at [facility] which she states was for right upper quadrant chest/abdominal pain underneath her breast. She states that she thought that it was a blood clot because she has a history of a previous pulmonary embolism and states it felt the same. She had elevated troponins and was transferred to [facility] for further workup and cardiology evaluation. She had EKG changes with nonspecific ST-T wave changes. She underwent cardiac catheterization with findings of mild disease involving the left main, normal left-sided filling pressure. Cardiology recommended continuing medical treatment. She had no chest pain on admission. She was stating that it was more in her right upper quadrant. They did an ultrasound of the abdomen that reported severe hepatic steatosis, main pancreatic duct mildly dilated 3.7 mm may be chronic correlate with amylase and lipase. On admission she had normal LFTs however today she did have increase in her LFTs. Gastroenterology was consulted by general surgery for dilated pancreatic duct. Patient denies any abdominal pain at this time. She states that last night she had abdominal pain again in that right upper quadrant wraps around to her back. She states that she had some fever and chills associated with it. Today she states she is just tired. She denies shortness of breath, chest pain, abdominal pain, nausea or vomiting. She denies any history of liver disease. States that a few years back she did have Bactrim for urinary tract infection which did cause elevated liver enzymes and states she was transferred to [facility] and they did a full workup on her however stated it was just related to medication. She denies any history of alcohol use or abuse. And no known history of hepatic steatosis. She denies any recent new medications. She was started on Rocephin but that was only earlier this morning for fever. Patient spiked a one-time temp of 101.0. She has been afebrile since midnight. Infectious disease was consulted for fever, they ordered a CT of the abdomen pelvis. Normal LFTs on admission as well as amylase and lipase. Repeat labs today WBC 11.5 hemoglobin 13.2 hematocrit 40.3 platelet count 132,000 INR 1.0 sodium 135 potassium 4.6 BUN 26 creatinine 1.06 magnesium 1.2 total bilirubin 3.7 AST 357 ALT 209 alkaline phosphatase 65 07/11/2023 Patient seen and examined today as a follow-up. She continues to deny any abdominal pain, no nausea or vomiting. She just states that she is tired. Patient does state that she has had a tooth abscess and has had dental work and was on doxycycline twice recently with the last dose ending when she was admitted here. Repeat LFTs today continue to be elevated, total bilirubin 3.3 AST 146 ALT [address] abdomen pelvis without contrast reported hepatomegaly with severe hepatic steatosis. Patchy density of the periphery of right greater than left lung bases. Scattered mildly enlarged retroperitoneal lymph nodes. Small hiatal hernia. 07/12/2023 Patient seen and examined this morning as a follow-up. She is resting comfortably. Denies any abdominal pain, nausea or vomiting. Repeat LFTs today trending down slightly total bilirubin 2.3 AST 124 ALT 149 alkaline phosphatase 107. Patient is scheduled for MRCP today time to be determined. Objective - Vital Signs Vital signs: Vital Signs Temp 98.6 F 07/12/23 04:31 Pulse 76 07/12/23 04:31 Resp 16 07/12/23 04:31 BP 110/68 07/12/23 04:31 Pulse Ox 96 07/12/23 04:31 FiO2 Intake & Output 07/11/23 07/12/23 07/12/23 18:59 06:59 18:59 Intake Total 476 10 Balance 476 10 Intake: IV 10 Invasive Line 2 10 Oral 476 Other: Voiding Method Toilet Toilet # Voids 1 1 - Exam General appearance: The patient is alert, oriented, appears in no acute distress. HET: Head is normocephalic and atraumatic. Conjunctiva pink. Sclera anicteric. Neck: Supple without lymphadenopathy. Abdomen: Soft, nontender, nondistended with bowel sounds. No guarding or rigidity. Extremities: Normal skin color and turgor. No pedal edema Skin: No rashes, no jaundice Neurological: No focal deficits. Alert and oriented. - Labs CBC & Chem 7: 07/11/23 09:54 07/12/23 09:42 Labs: Abnormal Lab Results - Last 24 Hours (Table) 07/11/23 07/11/23 07/11/23 Range/Units 09:54 09:54 11:17 RBC 3.74 L (3.80-5.40) m/uL MCV 101.5 H (80.0-100.0) fL Plt Count 129 L (150-450) k/uL Lymphocytes # 0.8 L (1.0-4.8) k/uL Sodium 134 L (137-145) mmol/L BUN 23 H (7-17) mg/dL Glucose 134 H (74-99) mg/dL POC Glucose (mg/dL) 129 H (70-110) mg/dL Calcium 7.9 L (8.4-10.2) mg/dL Total Bilirubin 3.3 H (0.2-1.3) mg/dL AST 146 H (14-36) U/L ALT 157 H (4-34) U/L Total Protein 5.6 L (6.3-8.2) g/dL Albumin 2.9 L (3.5-5.0) g/dL 07/11/23 07/11/23 07/12/23 Range/Units 16:17 20:08 05:59 RBC (3.80-5.40) m/uL MCV (80.0-100.0) fL Plt Count (150-450) k/uL Lymphocytes # (1.0-4.8) k/uL Sodium (137-145) mmol/L BUN (7-17) mg/dL Glucose (74-99) mg/dL POC Glucose (mg/dL) 140 H 204 H 128 H (70-110) mg/dL Calcium (8.4-10.2) mg/dL Total Bilirubin (0.2-1.3) mg/dL AST (14-36) U/L ALT (4-34) U/L Total Protein (6.3-8.2) g/dL Albumin (3.5-5.0) g/dL Microbiology - Last 24 Hours (Table) 07/10/23 00:02 Blood Culture - Preliminary Blood Assessment and Plan (1) Elevated LFTs Narrative/Plan: 72-year-old female transferred for chest pain and NSTEMI with who underwent cardiac catheterization with mild disease found and medical management recommended. Patient was a transfer and reported as chest pain however she states that it was mostly right upper quadrant pain under the breastbone. She was concerned it was a pulmonary embolism as she has a history of a PE in the p ast. Pain had subsided but then last night she has pain again in that right upper quadrant that radiated to her back. She no longer has any pain however she did have normal LFTs on admission with rapid increase today. Abdominal ultrasound reports the main pancreatic duct mildly dilated however this may be chronic and unrelated. Repeat amylase and lipase pending. Possible etiologies is acute hepatitis possibly related to hypoperfusion or medication. Also need to consider possible biliary obstruction. Will repeat labs tomorrow. CT abdomen pelvis ordered for infectious diseases patient had a one-time spike in her temp. Also reported severe hepatic steatosis on gallbladder ultrasound ho wever no previous knowledge of liver disease. No recent changes in medication. Will reevaluate labs tomorrow, CT abdomen pelvis and consider possible MRCP versus ERCP if indicated. Patient continues with elevated LFTs, however are trending down. Need to rule out possible choledocholithiasis, patient scheduled for MRCP timing undetermined. If there is evidence of choledocholithiasis patient will need to be transferred to a tertiary center where gastroenterology will be present as there will be no further gastroenterology available at this hospital. Current Visit: Yes Status: Acute Code(s): R79.89 - OTHER SPECIFIED ABNORMAL FINDINGS OF BLOOD CHEMISTRY SNOMED Code(s): 647621893 (2) Right upper quadrant pain Current Visit: Yes Status: Acute Code(s): R10.11 - RIGHT UPPER QUADRANT PAIN SNOMED Code(s): 186174655 (3) NSTEMI (non-ST elevated myocardial infarction) Current Visit: Yes Status: Acute Code(s): I21.4 - NON-ST ELEVATION (NSTEMI) MYOCARDIAL INFARCTION SNOMED Code(s): 92733923 (4) History of pulmonary embolism Current Visit: Yes Status: Acute Code(s): Z86.711 - PERSONAL HISTORY OF PULMONARY EMBOLISM SNOMED Code(s): 672662136 (5) Diabetes mellitus Current Visit: Yes Status: Acute Code(s): E11.9 - TYPE 2 DIABETES MELLITUS WITHOUT COMPLICATIONS SNOMED Code(s): 16155677 Plan: 1. Continue symptomatic and supportive care 2. Diet as tolerated 3. MRCP ordered, timing to be determined 4. Continue to trend LFTs 5. CT abdomen pelvis reviewed 6. Protonix 40 mg GI prophylaxis 7. If there is evidence of biliary obstruction or choledocholithiasis patient will need to be transferred to tertiary center with gastroenterology present as there will be no further gastroenterology available at this location. Thank you for allowing us to participate in the care of the patient, the GI service will sign off, gastroenterology will not be available at the hospital this weekend and through next week. If further evaluation by gastroenterology is required the patient will need transfer as per the primary team's discretion. Dr. Randall Ramos I agree with the dictator's note, documented as a scribe by Alice Mensah.
[2023-07-12 12:36] LABS: Glucose,Whole Blood 129 mg/dL (70-110)
--- NOTE | 2023-07-12 12:50 | MR ---
EXAMINATION TYPE: MR MRCP DATE OF EXAM: 07/12/2023 12:20 PM CLINICAL INDICATION:Female, 72 years old with history of elevated LFTS, elevated bili; PHH, Elevated LFTS, elevated bili COMPARISON: CT 07/10/2023. TECHNIQUE: Multi planar, T2-weighted imaging with and without fat saturation and chemical shift imag ing was performed of the abdomen. Then, heavily T2 weighted imaging (half-Fourier acquisition single- shot turbo spin-echo) was utilized in order to study the biliary system. Maximum intensity projectio n images were reconstructed from the original data of the biliary tree. 3D images were created on [employer] work station. No Gadolinium given. FINDINGS: Lower Thorax: No evidence for acute process. Small hiatal hernia is present. MRCP: * The intrahepatic ducts have a normal appearance. * The common bile duct at the level of the pancreatic head measures 6 mm in size. * The common hepatic duct measures 6 mm in size. * The pancreatic duct is normal. * The gallbladder appears unremarkable. Abdomen: Liver: High T2 signal probable hepatic cyst. Signal dropout on chemical shift out of phase imaging. T he liver is enlarged for size measuring up to 19 x 7 cm. Pancreas: Unremarkable. Spleen: Unremarkable. Adrenal glands: Unremarkable. Kidneys: No obstructive uropathy or renal mass. Stomach and Bowel: Unremarkable as visualized. Peritoneum: No evidence of pneumoperitoneum or free fluid. Vasculature: Unremarkable. No aortic aneurysm. Musculoskeletal: The osseous structures appear intact. Lymph Nodes: Prominent retroperitoneal lymph nodes measuring up to 9 mm in short axis to the left david al sinus. Lymph nodes also in the gastrohepatic ligament measuring up to 6 mm. Abdominal wall: Unremarkable. IMPRESSION: 1. There remains lymphadenopathy in the retroperitoneum including the gastrohepatic ligament and at least one lymph node near the distal esophagus. Correlate for history of malignancy. Any imaging at o laside institution that is more remote may be of benefit for stability. 2. No evidence to suggest ductal stricture, choledocholithiasis, or biliary ductal dilatation. 3. Hepatic steatosis. Hepatomegaly. 4. Simple cyst with thin septation in the dome of the liver.
--- NOTE | 2023-07-12 15:03 | P.PN ---
Subjective Progress Note Date: 07/12/23 * 72-year-old female with a past medical history including hypertension, diabetes and pulmonary embolism. Patient was seen at [facility] which she states was for right upper quadrant chest/abdominal pain underneath her breast. She states that she thought that it was a blood clot because she has a history of a previous pulmonary embolism and states it felt the same. She had elevated troponins and was transferred to [facility] for further workup and cardiology evaluation. She had EKG changes with nonspecific ST-T wave changes. * She underwent cardiac catheterization with findings of mild disease involving the left main, normal left-sided filling pressure. Cardiology recommended continuing medical treatment. She had no chest pain on admission. She was stating that it was more in her right upper quadrant. They did an ultrasound of the abdomen that reported severe hepatic steatosis, main pancreatic duct mildly dilated 3.7 mm may be chronic correlate with amylase and lipase. On admission she had normal LFTs however today she did have increase in her LFTs. * Gastroenterology was consulted by general surgery for dilated pancreatic duct. Patient denies any abdominal pain at this time. She states that last night she had abdominal pain again in that right upper quadrant wraps around to her back. She states that she had some fever and chills associated with it. * She was started on Rocephin Patient spiked a one-time temp of 101.0. She has been afebrile since midnight. Infectious disease was consulted for fever, they ordered a CT of the abdomen pelvis.Normal LFTs on admission as well as amylase and lipase. Repeat labs today WBC 11.5 hemoglobin 13.2 hematocrit 40.3 platelet count 132,000 INR 1.0 sodium 135 potassium 4.6 BUN 26 creatinine 1.06 magnesium 1.2 total bilirubin 3.7 AST 357 ALT 209 alkaline phosphatase 65 * 07/11/2023 Repeat LFTs continue to be elevated, total bilirubin 3.3 AST 146 ALT [address] abdomen pelvis without contrast reported hepatomegaly with severe hepatic steatosis. Patchy density of the periphery of right greater than left lung bases. Scattered mildly enlarged retroperitoneal lymph nodes. Small hiatal hernia. * 07/12/23 : Patient seen and evaluated bedside, vitals reviewed, blood work revi ewed pending to assess MRCP, will trend liver profile REVIEW OF SYSTEMS: CONSTITUTIONAL: No fever, no malaise, no fatigue. HEENT: No recent visual problems or hearing problems. Denied any sore throat. CARDIOVASCULAR: No chest pain, orthopnea, PND, no palpitations, no syncope. PULMONARY: No shortness of breath, no cough, no hemoptysis. GASTROINTESTINAL: No diarrhea, no nausea, no vomiting, no abdominal pain. NEUROLOGICAL: No headaches, no weakness, no numbness. HEMATOLOGICAL: Denies any bleeding or petechiae. GENITOURINARY: Denies any burning micturition, frequency, or urgency. MUSCULOSKELETAL/RHEUMATOLOGICAL: Denies any joint pain, swelling, or any muscle pain. ENDOCRINE: Denies any polyuria or polydipsia. PHYSICAL EXAMINATION: GENERAL: The patient is alert and oriented x3, not in any acute distress. Well developed, well nourished. HEENT: Pupils are round and equally reacting to light. EOMI. CARDIOVASCULAR: S1 and S2 present. No murmurs, rubs, or gallops. PULMONARY: Chest is clear to auscultation, no wheezing or crackles. ABDOMEN: Soft, nontender, nondistended, normoactive bowel sounds. No palpable organomegaly. MUSCULOSKELETAL: No joint swelling or deformity. EXTREMITIES: No cyanosis, clubbing, or pedal edema. NEUROLOGICAL: Gross neurological examination did not reveal any focal deficits. SKIN: No rashes. Assessment and plan Transaminitis abdominal pain rule out hepatobiliary etiology Right lower lobe pneumonia Non-ST elevated MO Diabetes mellitus type 2 History of pulmonary embolism * In regards to transaminitis, CT abdomen pelvis reviewed, patient noted to have severe hepatic steatosis hepatomegaly, seen by gastroenterology, MRCP ordered * Regards to pneumonia continue patient on IV Rocephin infectious disease follow ing * In regards to non-ST elevated MO patient seen by cardiology s/p cardiac catheterization medical management recommended. Continue aspirin, Cardizem, lisinopril, hydrochlorothiazide * Regards to diabetes mellitus Accu-Cheks ACHS continue patient on correctional insulin and Levemir * In regards to history of pulm embolism, patient not on anticoagulation prior to admission continue patient on heparin for DVT prophylaxis * Status is full code Objective - Vital Signs Vital signs: Vital Signs Temp 98.6 F 07/12/23 08:35 Pulse 72 07/12/23 08:35 Resp 16 07/12/23 08:35 BP 111/56 07/12/23 08:35 Pulse Ox 96 07/12/23 04:31 FiO2 Intake & Output 07/11/23 07/12/23 07/12/23 18:59 06:59 18:59 Intake Total 476 10 Balance 476 10 Intake: IV 10 Invasive Line 2 10 Oral 476 Other: Voiding Method Toilet Toilet # Voids 1 1 - Labs CBC & Chem 7: 07/11/23 09:54 07/12/23 09:42 Labs: Abnormal Lab Results - Last 24 Hours (Table) 07/11/23 07/11/23 07/11/23 Range/Units 09:54 09:54 11:17 RBC 3.74 L (3.80-5.40) m/uL MCV 101.5 H (80.0-100.0) fL Plt Count 129 L (150-450) k/uL Lymphocytes # 0.8 L (1.0-4.8) k/uL Sodium 134 L (137-145) mmol/L BUN 23 H (7-17) mg/dL Glucose 134 H (74-99) mg/dL POC Glucose (mg/dL) 129 H (70-110) mg/dL Calcium 7.9 L (8.4-10.2) mg/dL Total Bilirubin 3.3 H (0.2-1.3) mg/dL AST 146 H (14-36) U/L ALT 157 H (4-34) U/L Total Protein 5.6 L (6.3-8.2) g/dL Albumin 2.9 L (3.5-5.0) g/dL 07/11/23 07/11/23 07/12/23 Range/Units 16:17 20:08 05:59 RBC (3.80-5.40) m/uL MCV (80.0-100.0) fL Plt Count (150-450) k/uL Lymphocytes # (1.0-4.8) k/uL Sodium (137-145) mmol/L BUN (7-17) mg/dL Glucose (74-99) mg/dL POC Glucose (mg/dL) 140 H 204 H 128 H (70-110) mg/dL Calcium (8.4-10.2) mg/dL Total Bilirubin (0.2-1.3) mg/dL AST (14-36) U/L ALT (4-34) U/L Total Protein (6.3-8.2) g/dL Albumin (3.5-5.0) g/dL Microbiology - Last 24 Hours (Table) 07/10/23 00:02 Blood Culture - Preliminary Blood
--- NOTE | 2023-07-12 15:28 | P.PN ---
Subjective Progress Note Date: 07/12/23 Principal diagnosis: Reason for follow-up is fever possible pneumonia Patient is a 72-year-old female past medical history significant for diabetes mellitus hypertension current everyday smoker presented to the outside facility complaining of right-sided chest pain under the right breast area patient did have a CT angio and therapy stated, patient did spike a fever p rompting this consultation. On today's evaluation that is 07/12/2023,the patient denies any fever or any chills, patient is breathing comfortably on room air, the patient denies chest pain shortness of breath and no significant cough, patient denies abdominal pain, did have some nausea but no vomiting and no diarrhea. Patient did creatinine 0.72 liver enzymes are elevated culture has been negative so far blood culture negative MRCP lymphadenopathy retroperitoneum no evidence to suggest ductal stricture or choledocho lithiasis Objective - Vital Signs Vital signs: Vital Signs Temp 98.6 F 07/12/23 08:35 Pulse 72 07/12/23 08:35 Resp 16 07/12/23 08:35 BP 111/56 07/12/23 08:35 Pulse Ox 96 07/12/23 04:31 FiO2 Intake & Output 07/11/23 07/12/23 07/12/23 18:59 06:59 18:59 Intake Total 476 10 Balance 476 10 Intake: IV 10 Invasive Line 2 10 Oral 476 Other: Voiding Method Toilet Toilet # Voids 1 1 - Exam GENERAL DESCRIPTION: An elderly female up in bed in no distress RESPIRATORY SYSTEM: Unlabored breathing , decreased breath sounds at bases HEART: S1 S2 regular rate and rhythm , ABDOMEN: Soft , no tenderness EXTREMITIES: No edema feet - Labs CBC & Chem 7: 07/11/23 09:54 07/12/23 09:42 Labs: Abnormal Lab Results - Last 24 Hours (Table) 07/11/23 07/11/23 07/11/23 Range/Units 09:54 09:54 11:17 RBC 3.74 L (3.80-5.40) m/uL MCV 101.5 H (80.0-100.0) fL Plt Count 129 L (150-450) k/uL Lymphocytes # 0.8 L (1.0-4.8) k/uL Sodium 134 L (137-145) mmol/L BUN 23 H (7-17) mg/dL Glucose 134 H (74-99) mg/dL POC Glucose (mg/dL) 129 H (70-110) mg/dL Calcium 7.9 L (8.4-10.2) mg/dL Total Bilirubin 3.3 H (0.2-1.3) mg/dL AST 146 H (14-36) U/L ALT 157 H (4-34) U/L Total Protein 5.6 L (6.3-8.2) g/dL Albumin 2.9 L (3.5-5.0) g/dL 07/11/23 07/11/23 07/12/23 Range/Units 16:17 20:08 05:59 RBC (3.80-5.40) m/uL MCV (80.0-100.0) fL Plt Count (150-450) k/uL Lymphocytes # (1.0-4.8) k/uL Sodium (137-145) mmol/L BUN (7-17) mg/dL Glucose (74-99) mg/dL POC Glucose (mg/dL) 140 H 204 H 128 H (70-110) mg/dL Calcium (8.4-10.2) mg/dL Total Bilirubin (0.2-1.3) mg/dL AST (14-36) U/L ALT (4-34) U/L Total Protein (6.3-8.2) g/dL Albumin (3.5-5.0) g/dL Microbiology - Last 24 Hours (Table) 07/10/23 00:02 Blood Culture - Preliminary Blood Assessment and Plan (1) Pneumonia Current Visit: Yes Status: Acute Code(s): J18.9 - PNEUMONIA, UNSPECIFIED ORGANISM SNOMED Code(s): 956166643 (2) Allergy to multiple antibiotics Current Visit: Yes Status: Acute Code(s): Z88.1 - ALLERGY STATUS TO OTHER ANTIBIOTIC AGENTS SNOMED Code(s): 155745665 (3) Elevated LFTs Current Visit: Yes Status: Acute Code(s): R79.89 - OTHER SPECIFIED ABNORMAL FINDINGS OF BLOOD CHEMISTRY SNOMED Code(s): 917159059 Plan: 1patient with sepsis in this patient who did have a fever elevated white count came to the hospital for the right upper quadrant/right lower chest cage pain and this patient was noted to be tender right upper quadrant area also have elevated liver enzymes concern for cholangitis/cholecystitis 2-patient with multiple antibiotic ALLERGIES that would limit the number of antibiotic safe to use 3-patient did have CT of abdominal pelvis with oral contrast only did show some hepatomegaly and evidence of right lower lobe infiltrate suspicious for pneumonia, MRCP did not show any evidence of choledocholithiasis 5-patient fever has responded to Rocephin which will be continued while waiting for the cultures to finalize Dictation was produced using [employer] dictation software. please excuse any grammatical, word or spelling errors. Time with Patient: Less than 30
[2023-07-12 18:03] LABS: Glucose,Whole Blood 172 mg/dL (70-110)
[2023-07-12 21:14] LABS: Glucose,Whole Blood 308 mg/dL (70-110)
[2023-07-13 06:20] LABS: Glucose,Whole Blood 126 mg/dL (70-110)
[2023-07-13 09:40] LABS: HCT 38.7 % (37.2-46.3); MCH 33.2 pg (27.0-32.0); MCHC 33.6 g/dL (32.0-37.0); Mean Platelet Volume 14.2 FL (9.5-12.2); NRBC Per 100 WBC 0 X 10*3/uL (0.00-0.01); Platelet Count 126 X 10*3/uL (140-440); RBC 3.91 X 10*6/uL (4.10-5.20); RDW 13.2 % (11.5-14.5); WBC 5.56 X 10*3/uL (4.50-10.00)
[2023-07-13 10:46] LABS: ALT 116 U/L (8-44); AST 85 U/L (13-35); Albumin 3.2 g/dL (3.8-4.9); Albumin/Globulin Ratio 1.19 Ratio (1.60-3.17); Alkaline Phosphatase 129 U/L (41-126); BUN/Creat Ratio 12.22 Ratio (12.00-20.00); Calcium 8.6 mg/dL (8.7-10.3); Carbon Dioxide 26.8 mmol/L (21.6-31.8); Chloride 100 mmol/L (96-109); Globulin 2.7 g/dL (1.6-3.3); Glucose 136 mg/dL (70-110); Potassium 3.7 mmol/L (3.5-5.5); Sodium 139 mmol/L (135-145); Total Bilirubin 1.5 mg/dL (0.3-1.2); Total Protein 5.9 g/dL (6.2-8.2)
--- NOTE | 2023-07-13 11:12 | CONS ---
CONSULTATION CHIEF COMPLAINT: Pain to the left maxillary sinus. HISTORY OF PRESENT ILLNESS: The patient is a 72-year-old female who had an upper left molar recently extracted. She was undergoing dry socket therapy for the tooth prior to admission. She states that the area is still sore and it radiates into her sinus. She is currently taking IV Rocephin. PAST MEDICAL HISTORY: Significant for diabetes, hypertension, and history of PE. She has multiple antibiotic allergies. PAST SURGICAL HISTORY: Significant for and recent tooth extraction. The patient currently smokes daily and denies any drug use or alcohol use. PHYSICAL EXAMINATION: Reveals the patient to be alert and oriented x3 with stable vital signs and is afebrile. Head and neck exam reveals no soft tissue swelling of the left midface; however, it is tender to palpation. Intraorally, a dry socket dressing is in the extraction site of tooth #14. There is no vestibular swelling and there is no purulent drainage from the recent tooth extraction socket. There is no other intraoral swelling or lesions noted. Patient's white count was slightly elevated, but is currently normal on IV Rocephin. ASSESSMENT: The patient may have a left maxillary sinus infection. PLAN: The patient will be discharged to follow up in my office when she is discharged. The area will be further evaluated and will be treated as needed. MMODL / IJN: [id number] /
[2023-07-13 12:09] LABS: Glucose,Whole Blood 279 mg/dL (70-110)
--- NOTE | 2023-07-13 13:36 | P.PN ---
Subjective Progress Note Date: 07/13/23 * 72-year-old female with a past medical history including hypertension, diabetes and pulmonary embolism. Patient was seen at [facility] which she states was for right upper quadrant chest/abdominal pain underneath her breast. She states that she thought that it was a blood clot because she has a history of a previous pulmonary embolism and states it felt the same. She had elevated troponins and was transferred to [facility] for further workup and cardiology evaluation. She had EKG changes with nonspecific ST-T wave changes. * She underwent cardiac catheterization with findings of mild disease involving the left main, normal left-sided filling pressure. Cardiology recommended continuing medical treatment. She had no chest pain on admission. She was stating that it was more in her right upper quadrant. They did an ultrasound of the abdomen that reported severe hepatic steatosis, main pancreatic duct mildly dilated 3.7 mm may be chronic correlate with amylase and lipase. On admission she had normal LFTs however today she did have increase in her LFTs. * Gastroenterology was consulted by general surgery for dilated pancreatic duct. Patient denies any abdominal pain at this time. She states that last night she had abdominal pain again in that right upper quadrant wraps around to her back. She states that she had some fever and chills associated with it. * She was started on Rocephin Patient spiked a one-time temp of 101.0. She has been afebrile since midnight. Infectious disease was consulted for fever, they ordered a CT of the abdomen pelvis.Normal LFTs on admission as well as amylase and lipase. Repeat labs today WBC 11.5 hemoglobin 13.2 hematocrit 40.3 platelet count 132,000 INR 1.0 sodium 135 potassium 4.6 BUN 26 creatinine 1.06 magnesium 1.2 total bilirubin 3.7 AST 357 ALT 209 alkaline phosphatase 65 * 07/11/2023 Repeat LFTs continue to be elevated, total bilirubin 3.3 AST 146 ALT [address] abdomen pelvis without contrast reported hepatomegaly with severe hepatic steatosis. Patchy density of the periphery of right greater than left lung bases. Scattered mildly enlarged retroperitoneal lymph nodes. Small hiatal hernia. * 07/12/23 : Patient seen and evaluated bedside, vitals reviewed, blood work revi ewed pending to assess MRCP, will trend liver profile * 07/13/23 : patient seen and evaluated bedside, an MRCP completed that showed retroperitoneal lymphadenopathy no evidence of biliary dilatation on choledocholithiasis. Continue to follow-up on liver profile potential discharge home in the next 24 hours. Care plan discussed with daughter at bedside REVIEW OF SYSTEMS: CONSTITUTIONAL: No fever, no malaise, no fatigue. HEENT: No recent visual problems or hearing problems. Denied any sore throat. CARDIOVASCULAR: No chest pain, orthopnea, PND, no palpitations, no syncope. PULMONARY: No shortness of breath, no cough, no hemoptysis. GASTROINTESTINAL: No diarrhea, no nausea, no vomiting, no abdominal pain. NEUROLOGICAL: No headaches, no weakness, no numbness. HEMATOLOGICAL: Denies any bleeding or petechiae. GENITOURINARY: Denies any burning micturition, frequency, or urgency. MUSCULOSKELETAL/RHEUMATOLOGICAL: Denies any joint pain, swelling, or any muscle pain. ENDOCRINE: Denies any polyuria or polydipsia. PHYSICAL EXAMINATION: GENERAL: The patient is alert and oriented x3, not in any acute distress. Well developed, well nourished. HEENT: Pupils are round and equally reacting to light. EOMI. CARDIOVASCULAR: S1 and S2 present. No murmurs, rubs, or gallops. PULMONARY: Chest is clear to auscultation, no wheezing or crackles. ABDOMEN: Soft, nontender, nondistended, normoactive bowel sounds. No palpable organomegaly. MUSCULOSKELETAL: No joint swelling or deformity. EXTREMITIES: No cyanosis, clubbing, or pedal edema. NEUROLOGICAL: Gross neurological examination did not reveal any focal deficits. SKIN: No rashes. Assessment and plan Transaminitis with hepatic steatosis Right lower lobe pneumonia retroperitoneal lymphadenopathy Non-ST elevated [place] Diabetes mellitus type 2 History of pulmonary embolism * In regards to transaminitis, CT abdomen pelvis reviewed, patient noted to have severe hepatic steatosis hepatomegaly, seen by gastroenterology, MRCPnegative for biliary etiology * Regards to pneumonia continue patient on IV Rocephin infectious disease following * In regards to non-ST elevated [place] patient seen by cardiology s/p cardiac catheterization medical management recommended. Continue aspirin, Cardizem, lisinopril, hydrochlorothiazide * Regards to diabetes mellitus Accu-Cheks ACHS continue patient on correctional insulin and Levemir * In regards to history of pulm embolism, patient not on anticoagulation prior to admission continue patient on heparin for DVT prophylaxis * in regards to retroperitoneal lymphadenopathy, will need follow-up likely reactive repeat computed tomography scan should be done in 4-6 weeks, ou tpatient follow-up with PCP * Status is full code Objective - Vital Signs Vital signs: Vital Signs Temp 97.9 F 07/13/23 08:00 Pulse 68 07/13/23 08:00 Resp 16 07/13/23 08:00 BP 138/72 07/13/23 08:00 Pulse Ox 93 L 07/13/23 08:00 FiO2 Intake & Output 07/12/23 07/13/23 07/13/23 18:59 06:59 18:59 Intake Total 240 240 Balance 240 240 Intake: Oral 240 240 Other: Voiding Method Toilet # Voids 1 1 1 - Labs CBC & Chem 7: 07/13/23 04:47 07/13/23 04:47 Labs: Abnormal Lab Results - Last 24 Hours (Table) 07/12/23 07/12/23 07/12/23 Range/Units 09:42 12:30 18:02 RBC (4.10-5.20) X 10*6/uL MCV (80.0-97.0) FL MCH (27.0-32.0) pg Plt Count (140-440) X 10*3/uL MPV (9.5-12.2) FL Sodium 135 L (137-145) mmol/L Glucose 124 H (74-99) mg/dL POC Glucose (mg/dL) 129 H 172 H (70-110) mg/dL Calcium 8.3 L (8.4-10.2) mg/dL Total Bilirubin 2.3 H (0.2-1.3) mg/dL AST 124 H (14-36) U/L ALT 149 H (4-34) U/L Total Protein 6.0 L (6.3-8.2) g/dL Albumin 3.1 L (3.5-5.0) g/dL 07/12/23 07/13/23 07/13/23 Range/Units 21:13 04:47 06:18 RBC 3.91 L (4.10-5.20) X 10*6/uL MCV 99.0 H (80.0-97.0) FL MCH 33.2 H (27.0-32.0) pg Plt Count 126 L (140-440) X 10*3/uL MPV 14.2 H (9.5-12.2) FL Sodium (137-145) mmol/L Glucose (74-99) mg/dL POC Glucose (mg/dL) 308 H 126 H (70-110) mg/dL Calcium (8.4-10.2) mg/dL Total Bilirubin (0.2-1.3) mg/dL AST (14-36) U/L ALT (4-34) U/L Total Protein (6.3-8.2) g/dL Albumin (3.5-5.0) g/dL Microbiology - Last 24 Hours (Table) 07/10/23 00:02 Blood Culture - Preliminary Blood
[2023-07-13 17:24] LABS: Glucose,Whole Blood 241 mg/dL (70-110)
[2023-07-13 20:50] LABS: Glucose,Whole Blood 278 mg/dL (70-110)
--- NOTE | 2023-07-13 23:16 | P.PN ---
Subjective Progress Note Date: 07/13/23 Principal diagnosis: Reason for follow-up is fever possible pneumonia Patient is a 72-year-old female past medical history significant for diabetes mellitus hypertension current everyday smoker presented to the outside facility complaining of right-sided chest pain under the right breast area patient did have a CT angio and therapy stated, patient did spike a fever p rompting this consultation. On today's evaluation that is 07/13/2023,the patient remains to be afebrile, patient is on room air not requiring supplemental oxygen and denies any shortness of breath no chest pain or cough.Patient denies having any nausea or vomiting, no abdominal pain and no diarrhea has been reported, feeling better. Patient white count is 5.56 creatinine 0.9 liver isms still elevated though trending down culture has been negative so far Objective - Vital Signs Vital signs: Vital Signs Temp 97.9 F 07/13/23 08:00 Pulse 68 07/13/23 08:00 Resp 16 07/13/23 08:00 BP 138/72 07/13/23 08:00 Pulse Ox 93 L 07/13/23 08:00 FiO2 Intake & Output 07/12/23 07/13/23 07/13/23 18:59 06:59 18:59 Intake Total 240 240 Balance 240 240 Intake: Oral 240 240 Other: Voiding Method Toilet # Voids 1 1 1 - Exam GENERAL DESCRIPTION: An elderly female up in bed in no distress RESPIRATORY SYSTEM: Unlabored breathing , decreased breath sounds at bases HEART: S1 S2 regular rate and rhythm , ABDOMEN: Soft , no tenderness EXTREMITIES: No edema feet - Labs CBC & Chem 7: 07/13/23 04:47 07/13/23 04:47 Labs: Abnormal Lab Results - Last 24 Hours (Table) 07/12/23 07/12/23 07/12/23 Range/Units 12:30 18:02 21:13 RBC (4.10-5.20) X 10*6/uL MCV (80.0-97.0) FL MCH (27.0-32.0) pg Plt Count (140-440) X 10*3/uL MPV (9.5-12.2) FL Anion Gap (4.00-12.00) mmol/L Glucose (70-110) mg/dL POC Glucose (mg/dL) 129 H 172 H 308 H (70-110) mg/dL Calcium (8.7-10.3) mg/dL Total Bilirubin (0.3-1.2) mg/dL AST (13-35) U/L ALT (8-44) U/L Alkaline Phosphatase (41-126) U/L Total Protein (6.2-8.2) g/dL Albumin (3.8-4.9) g/dL Albumin/Globulin Ratio (1.60-3.17) Ratio 07/13/23 07/13/23 07/13/23 Range/Units 04:47 04:47 06:18 RBC 3.91 L (4.10-5.20) X 10*6/uL MCV 99.0 H (80.0-97.0) FL MCH 33.2 H (27.0-32.0) pg Plt Count 126 L (140-440) X 10*3/uL MPV 14.2 H (9.5-12.2) FL Anion Gap 12.20 H (4.00-12.00) mmol/L Glucose 136 H (70-110) mg/dL POC Glucose (mg/dL) 126 H (70-110) mg/dL Calcium 8.6 L (8.7-10.3) mg/dL Total Bilirubin 1.5 H (0.3-1.2) mg/dL AST 85 H (13-35) U/L ALT 116 H (8-44) U/L Alkaline Phosphatase 129 H (41-126) U/L Total Protein 5.9 L (6.2-8.2) g/dL Albumin 3.2 L (3.8-4.9) g/dL Albumin/Globulin Ratio 1.19 L (1.60-3.17) Ratio 07/13/23 Range/Units 12:08 RBC (4.10-5.20) X 10*6/uL MCV (80.0-97.0) FL MCH (27.0-32.0) pg Plt Count (140-440) X 10*3/uL MPV (9.5-12.2) FL Anion Gap (4.00-12.00) mmol/L Glucose (70-110) mg/dL POC Glucose (mg/dL) 279 H (70-110) mg/dL Calcium (8.7-10.3) mg/dL Total Bilirubin (0.3-1.2) mg/dL AST (13-35) U/L ALT (8-44) U/L Alkaline Phosphatase (41-126) U/L Total Protein (6.2-8.2) g/dL Albumin (3.8-4.9) g/dL Albumin/Globulin Ratio (1.60-3.17) Ratio Microbiology - Last 24 Hours (Table) 07/10/23 00:02 Blood Culture - Preliminary Blood Assessment and Plan (1) Pneumonia Current Visit: Yes Status: Acute Code(s): J18.9 - PNEUMONIA, UNSPECIFIED ORGANISM SNOMED Code(s): 933355938 (2) Allergy to multiple antibiotics Current Visit: Yes Status: Acute Code(s): Z88.1 - ALLERGY STATUS TO OTHER ANTIBIOTIC AGENTS SNOMED Code(s): 236892638 (3) Elevated LFTs Current Visit: Yes Status: Acute Code(s): R79.89 - OTHER SPECIFIED ABNORMAL FINDINGS OF BLOOD CHEMISTRY SNOMED Code(s): 126804417 Plan: 1patient with sepsis in this patient who did have a fever elevated white count came to the hospital for the right upper quadrant/right lower chest cage pain and this patient was noted to be tender right upper quadrant area also have elevated liver enzymes concern for cholangitis/cholecystitis 2-patient with multiple antibiotic ALLERGIES that would limit the number of antibiotic safe to use 3-patient did have CT of abdominal pelvis with oral contrast only did show some hepatomegaly and evidence of right lower lobe infiltrate suspicious for pneumonia, MRCP did not show any evidence of choledocholithiasis 5-patient fever has responded to Rocephin and culture has been negative so far plan is to finish therapy with oral Ceftin liver enzymes are trending down Dictation was produced using [employer] dictation software. please excuse any grammatical, word or spelling errors. Time with Patient: Less than 30
[2023-07-14 05:51] LABS: Glucose,Whole Blood 154 mg/dL (70-110)
[2023-07-14 08:27] VITALS: BP 104/65; PULSE 76; RESP 16; TEMP 97.9
[2023-07-14 08:36] LABS: HCT 43.1 % (34.0-46.0); MCHC 32.5 g/dL (31.0-37.0); MCV 104.8 fL (80.0-100.0); Macrocytosis Slight; Mean Platelet Volume 11.5; Platelet Count 162 k/uL (150-450); RBC 4.11 m/uL (3.80-5.40); RDW 12.7 % (11.5-15.5); WBC 6.9 k/uL (3.8-10.6)
[2023-07-14 09:10] LABS: ALT 113 U/L (4-34); AST 68 U/L (14-36); African American GFR (CKD) 76 (>60 ml/min/1.73 sqM); Albumin 3.4 g/dL (3.5-5.0); Albumin/Globulin Ratio 1.1; Alkaline Phosphatase 155 U/L (38-126); Anion Gap 8 mmol/L; Blood Urea Nitrogen 11 mg/dL (7-17); Calcium 8.4 mg/dL (8.4-10.2); Carbon Dioxide 30 mmol/L (22-30); Chloride 101 mmol/L (98-107); Glucose 152 mg/dL (74-99); Non-African American GFR(CKD) 66 (>60 ml/min/1.73 sqM); Potassium 3.7 mmol/L (3.5-5.1); Sodium 139 mmol/L (137-145); Total Bilirubin 1.3 mg/dL (0.2-1.3); Total Protein 6.4 g/dL (6.3-8.2)
--- NOTE | 2023-07-14 12:04 | P.DS ---
Providers Date of admission: 07/09/23 00:24 Expected date of discharge: 07/14/23 Attending physician: Wing Benson Consults: 07/09/23 23:50 Consult Physician Routine Consulting Provider: Marlee Khan Consult Reason/Comments: fever unknown origin Do you want consulting provider notified?: Yes, Notify in am 07/10/23 09:41 Consult Physician Routine Consulting Provider: Ernestina Ramos Consult Reason/Comments: Dilated pancreatic duct on ultrasound Do you want consulting provider notified?: Yes 07/12/23 18:59 Consult Physician Routine Consulting Provider: Jason Delarosa Consult Reason/Comments: known left upper tooth abscess/extraction with packing Do you want consulting provider notified?: Yes Primary care physician: Macho Uriarte MD Hospital Course: * 72-year-old female with a past medical history including hypertension, diabetes and pulmonary embolism. Patient was seen at [facility] which she states was for right upper quadrant chest/abdominal pain underneath her breast. She states that she thought that it was a blood clot because she has a history of a previous pulmonary embolism and states it felt the same. She had elevated troponins and was transferred to [facility] for further workup and cardiology evaluation. She had EKG changes with nonspecific ST-T wave changes. * She underwent cardiac catheterization with findings of mild disease involving the left main, normal left-sided filling pressure. Cardiology recommended continuing medical treatment. She had no chest pain on admission. She was stating that it was more in her right upper quadrant. They did an ultrasound of the abdomen that reported severe hepatic steatosis, main pancreatic duct mildly dilated 3.7 mm may be chronic correlate with amylase and lipase. On admission she had normal LFTs however today she did have increase in her LFTs. * Gastroenterology was consulted by general surgery for dilated pancreatic duct. Patient denies any abdominal pain at this time. She states that last night she had abdominal pain again in that right upper quadrant wraps around to her back. She states that she had some fever and chills associated with it. * She was started on Rocephin Patient spiked a one-time temp of 101.0. She has been afebrile since midnight. Infectious disease was consulted for fever, they ordered a CT of the abdomen pelvis.Normal LFTs on admission as well as amylase and lipase. Repeat labs today WBC 11.5 hemoglobin 13.2 hematocrit 40.3 platelet count 132,000 INR 1.0 sodium 135 potassium 4.6 BUN 26 creatinine 1.06 magnesium 1.2 total bilirubin 3.7 AST 357 ALT 209 alkaline phosphatase 65 * 07/11/2023 Repeat LFTs continue to be elevated, total bilirubin 3.3 AST 146 ALT [address] abdomen pelvis without contrast reported hepatomegaly with severe hepatic steatosis. Patchy density of the periphery of right greater than left lung bases. Scattered mildly enlarged retroperitoneal lymph nodes. Small hiatal hernia. * 07/12/23 : Patient seen and evaluated bedside, vitals reviewed, blood work reviewed pending to assess MRCP, will trend liver profile * 07/13/23 : patient seen and evaluated bedside, an MRCP completed that showed retroperitoneal lymphadenopathy no evidence of biliary dilatation on choledocholithiasis. Continue to follow-up on liver profile potential discharge home in the next 24 hours. Care plan discussed with daughter at bedside * 07/14/23: Patient seen and evaluated bedside, liver profile trending down, patient cleared for discharge from infectious disease standpoint, discharged on oral Ceftin. Patient tolerated Rocephin while inpatient. Outpatient follow-up with primary care physician recommended patient needs a CT abdomen and pelvis in 4 weeks instructions given to patient as well. This was communicated to her daughter as well. Will need further workup for lymphadenopathy if it persist PHYSICAL EXAMINATION: GENERAL: The patient is alert and oriented x3, not in any acute distress. Well developed, well nourished. HEENT: Pupils are round and equally reacting to light. EOMI. CARDIOVASCULAR: S1 and S2 present. No murmurs, rubs, or gallops. PULMONARY: Chest is clear to auscultation, no wheezing or crackles. ABDOMEN: Soft, nontender, nondistended, normoactive bowel sounds. No palpable organomegaly. MUSCULOSKELETAL: No joint swelling or deformity. EXTREMITIES: No cyanosis, clubbing, or pedal edema. NEUROLOGICAL: Gross neurological examination did not reveal any focal deficits. SKIN: No rashes. Assessment and plan Transaminitis with hepatic steatosis Right lower lobe pneumonia retroperitoneal lymphadenopathy Non-ST elevated [place] Diabetes mellitus type 2 History of pulmonary embolism * In regards to transaminitis, CT abdomen pelvis reviewed, patient noted to have severe hepatic steatosis hepatomegaly, seen by gastroenterology, MRCPnegative for biliary etiology, will need follow-up CT abdomen pelvis * Regards to pneumonia, received Rocephin inpatient transition to oral Ceftin per infectious disease recommendation * In regards to non-ST elevated [place] patient seen by cardiology s/p cardiac catheterization medical management recommended. Continue aspirin, Cardizem, lisinopril, hydrochlorothiazide * Regards to diabetes mellitus Accu-Cheks ACHS continue patient on home regimen post discharge * In regards to history of pulm embolism, patient not on anticoagulation prior to admission continue patient on heparin for DVT prophylaxis. Will defer further management to primary care physician * in regards to retroperitoneal lymphadenopathy, will need follow-up likely reactive repeat computed tomography scan should be done in 4-6 weeks, outpatient follow-up with PCP * Status is full code Patient Condition at Discharge: Fair Plan - Discharge Summary Discharge Rx Participant: No New Discharge Prescriptions: New Aspirin 81 mg PO DAILY 90 Days #90 tab Pantoprazole [Protonix] 40 mg PO AC-BID 30 Days #60 tab Diltiazem Oral [Cardizem*] 30 mg PO TID 30 Days #90 tab cefUROXime axetiL [Ceftin] 500 mg PO BID 5 Days #10 tab Continue metFORMIN HCL ER [Glucophage XR] 500 mg PO DAILY Fluticasone/Umeclidin/Vilanter [Trelegy Ellipta 100-62.5-25] 1 puff INHALATION RT-DAILY Insulin Glargine,Hum.rec.anlog [Lantus Solostar Pen] 20 units SQ AC-SUPPER glipiZIDE [Glucotrol] 10 mg PO DAILY Citalopram Hydrobromide [CeleXA] 20 mg PO DAILY Lisinopril-Hctz 10-12.5 mg [Zestoretic 10-12.5] 1 tab PO DAILY Discontinued Doxycycline Hyclate 100 mg PO BID Ibuprofen [Motrin] 600 mg PO Q6H PRN PRN Reason: Pain Discharge Medication List Citalopram Hydrobromide [CeleXA] 20 mg PO DAILY 07/09/23 [History] Fluticasone/Umeclidin/Vilanter [Trelegy Ellipta 100-62.5-25] 1 puff INHALATION RT-DAILY 07/09/23 [History] Insulin Glargine,Hum.rec.anlog [Lantus Solostar Pen] 20 units SQ AC-SUPPER 07/09/23 [History] Lisinopril-Hctz 10-12.5 mg [Zestoretic 10-12.5] 1 tab PO DAILY 07/09/23 [History] glipiZIDE [Glucotrol] 10 mg PO DAILY 07/09/23 [History] metFORMIN HCL ER [Glucophage XR] 500 mg PO DAILY 07/09/23 [History] Aspirin 81 mg PO DAILY 90 Days #90 tab 07/14/23 [Rx] Diltiazem Oral [Cardizem*] 30 mg PO TID 30 Days #90 tab 07/14/23 [Rx] Pantoprazole [Protonix] 40 mg PO AC-BID 30 Days #60 tab 07/14/23 [Rx] cefUROXime axetiL [Ceftin] 500 mg PO BID 5 Days #10 tab 07/14/23 [Rx] Follow up Appointment(s)/Referral(s): Macho Uriarte MD [Primary Care Provider] - 1 Week (Follow-up with your primary care doctor for a CT abdomen and pelvis in 4 weeks to evaluate lymphadenopathy) Danny Mello MD [STAFF PHYSICIAN] - 1 Week Patient Instructions/Handouts: Heart Attack (DC), How to Stop Smoking (ED), Heart Healthy Diet (DC) Discharge Disposition: HOME WITH HOME HEALTH SERVICES Care Plan Goals (MU): follow up scan for abdominal node enlarged from primary care out patient.
== END 2023-07-14 11:02 | disposition home health service (06) | DRG 193 ==
LOC: EC 23:42 → 3SCARD 07-09 00:24 → 6NMEDSUR 07-12 15:26
PROVIDERS: ADMIT Family Medicine; ATTEND Family Medicine
PROC: 4A023N7 Measurement of Cardiac Sampling and Pressure, Left Heart, Percutaneous Approach (ICD-10-PCS; principal; 2023-07-09 10:55)
PROC: B2111ZZ Fluoroscopy of Multiple Coronary Arteries using Low Osmolar Contrast (ICD-10-PCS; 2023-07-09 10:55)
DX: J18.9 Pneumonia, unspecified organism (principal); I21.4 Non-ST elevation (NSTEMI) myocardial infarction; J44.0 Chronic obstructive pulmonary disease with (acute) lower respiratory infection; E83.42 Hypomagnesemia; K59.00 Constipation, unspecified; N18.9 Chronic kidney disease, unspecified; E11.22 Type 2 diabetes mellitus with diabetic chronic kidney disease; Z86.711 Personal history of pulmonary embolism; R10.11 Right upper quadrant pain; I12.9 Hypertensive chronic kidney disease with stage 1 through stage 4 chronic kidney disease, or unspecified chronic kidney disease; Z82.49 Family history of ischemic heart disease and other diseases of the circulatory system; G89.29 Other chronic pain; K44.9 Diaphragmatic hernia without obstruction or gangrene; F17.290 Nicotine dependence, other tobacco product, uncomplicated; R11.2 Nausea with vomiting, unspecified; F17.210 Nicotine dependence, cigarettes, uncomplicated; I08.1 Rheumatic disorders of both mitral and tricuspid valves; K04.7 Periapical abscess without sinus; I25.10 Atherosclerotic heart disease of native coronary artery without angina pectoris; K76.0 Fatty (change of) liver, not elsewhere classified; K86.89 Other specified diseases of pancreas; M27.3 Alveolitis of jaws; Z79.84 Long term (current) use of oral hypoglycemic drugs; Z79.899 Other long term (current) drug therapy; Z86.718 Personal history of other venous thrombosis and embolism; Z88.2 Allergy status to sulfonamides; Z88.0 Allergy status to penicillin; Z88.1 Allergy status to other antibiotic agents; Z79.82 Long term (current) use of aspirin
CPT/HCPCS: 36415; 71045; 74176; 74181; 76700; 76937; 80053; 80074; 81001; 82150; 83036; 83605; 83690; 83735; 83880; 84100; 84145; 84484; 85025; 85027; 85379; 85610; 85730; 86140; 87040; 87636; 93005; 93306; 93458; 94760; 96361; 96365; 96366; 96375; 99285

== ENCOUNTER 2023-11-05 15:10 | Inpatient (IN) | payer MEDICARE ==
[~2023-11-05 15:10] MED LIST: HEPARIN SOD,PORK IN 0.45% NACL 250 ML IV ONE
[2023-11-05] MEDS ORDERED: MORPHINE SULFATE 4 MG/ML SYRINGE ONE (17:55)
[2023-11-05] MEDS ORDERED: metFORMIN 500 MG TAB ONE (22:52)
[2023-11-05] MEDS ORDERED: EZETIMIBE 10 MG TAB ONE (22:52)
[2023-11-05] MEDS ORDERED: DILTIAZEM ORAL 30 MG TAB ONE (23:00)
[2023-11-06] MEDS ORDERED: INSULIN ASPART (NovoLOG) 100 UNIT/ML VIAL SQ ONE ×3 (06:42→21:59)
[2023-11-06] MEDS ORDERED: HEPARIN SOD,PORK IN 0.45% NACL 250 ML IV ONE (06:54)
[2023-11-06] MEDS ORDERED: metFORMIN 500 MG TAB ONE ×2 (09:53→21:57)
[2023-11-06] MEDS ORDERED: EZETIMIBE 10 MG TAB ONE (21:58)
[2023-11-07] MEDS ORDERED: INSULIN ASPART (NovoLOG) 100 UNIT/ML VIAL SQ ONE ×3 (06:43→17:34)
[2023-11-07] MEDS ORDERED: ACETAMINOPHEN TAB 500 MG TAB ONE ×2 (09:50→22:06)
[2023-11-07] MEDS ORDERED: metFORMIN 500 MG TAB ONE ×3 (09:52→22:06)
[2023-11-07] MEDS ORDERED: ASPIRIN 81 MG ONE (12:42)
[2023-11-07] MEDS ORDERED: APIXABAN 5 MG TAB ONE ×2 (12:42→22:05)
[2023-11-07] MEDS ORDERED: EZETIMIBE 10 MG TAB ONE (22:06)
[2023-11-08] MEDS ORDERED: ASPIRIN 81 MG ONE (08:13)
[2023-11-08] MEDS ORDERED: FAMOTIDINE 20 MG TAB ONE (08:13)
[2023-11-08] MEDS ORDERED: APIXABAN 5 MG TAB ONE ×2 (08:13→08:14)
[2023-11-08] MEDS ORDERED: metFORMIN 500 MG TAB ONE (08:13)
[2023-11-08] MEDS ORDERED: ACETAMINOPHEN TAB 500 MG TAB ONE (10:05)
--- NOTE | 2023-12-10 08:19 | CA ---
Transthoracic Echo Report Name: Suly Jefferson Age: 73 Gender: O : 1950 Exam Date: 11/07/2023 14:11 Exam Location: [facility] Ht (in): 65 Wt (lb): 190 Ordering Physician: Attending/Referring Phys: Un[employer] Property Officer Kerrie Higuera RDCS Procedure CPT: Indications: Cardiac Hx: Technical Quality: Fair Contrast 1: Total Dose (mL): Contrast 2: Total Dose (mL): MEASUREMENTS (Male / Female) Normal Values 2D ECHO LV Diastolic Diameter PLAX 4.4 cm 4.2 - 5.9 / 3.9 - 5.3 cm LV Systolic Diameter PLAX 3.0 cm IVS Diastolic Thickness 1.1 cm 0.6 - 1.0 / 0.6 - 0.9 cm LVPW Diastolic Thickness 1.3 cm 0.6 - 1.0 / 0.6 - 0.9 cm LV Relative Wall Thickness 0.6 RV Internal Dim ED PLAX 3.1 cm LA Systolic Diameter LX 3.5 cm 3.0 - 4.0 / 2.7 - 3.8 cm LV Diastolic Volume MOD BP 36.8 cm??? 67 - 155 / 56 - 104 cm??? LV Systolic Volume MOD BP 14.1 cm??? 22 - 58 / 19 - 49 cm??? LV Ejection Fraction MOD BP 61.5 % >= 55 % LV Cardiac Index MOD BP 975.5 cm???/min???m??? LV Diastolic Volume MOD 4C 35.3 cm??? LV Systolic Volume MOD 4C 12.2 cm??? LV Ejection Fraction MOD 4C 65.6 % LV Cardiac Index MOD 4C 999.2 cm???/min???m??? LV Diastolic Length 4C 6.6 cm LV Systolic Length 4C 5.4 cm LV Diastolic Volume MOD 2C 36.2 cm??? LV Systolic Volume MOD 2C 16.3 cm??? LV Ejection Fraction MOD 2C 55.1 % LV Cardiac Index MOD 2C 860.4 cm???/min???m??? LV Diastolic Length 2C 7.0 cm LV Systolic Length 2C 5.7 cm LA Volume 38.3 cm??? 18 - 58 / 22 - 52 cm??? LA Volume Index 19.0 cm???/m??? 16 - 28 cm???/m??? M-MODE Aortic Root Diameter MM 2.8 cm DOPPLER AV Peak Velocity 167.6 cm/s AV Peak Gradient 11.2 mmHg MV Area PHT 3.1 cm??? Mitral E Point Velocity 79.3 cm/s Mitral A Point Velocity 99.6 cm/s Mitral E to A Ratio 0.8 MV Deceleration Time 247.7 ms TR Peak Velocity 279.5 cm/s TR Peak Gradient 31.3 mmHg Right Ventricular Systolic Press 36.3 mmHg FINDINGS Left Ventricle Left ventricular ejection fraction is estimated at 55-60 %. Left ventricular cavity size normal. Mildly increased septal wall thickness. No obvious regional wall motion abnormalities. Right Ventricle Normal right ventricular size and function. Mild pulmonary hypertension. Right Atrium Normal right atrial size. No right atrial thrombus or mass seen. Left Atrium Normal left atrial size. No left atrial thrombus or mass present. Mitral Valve Structurally normal mitral valve. No mitral stenosis, regurgitation or prolapse. Aortic Valve Trileaflet aortic valve. No aortic valve stenosis or regurgitation. Tricuspid Valve Structurally normal tricuspid valve. Mild tricuspid regurgitation. Pulmonic Valve Pulmonic valve not well visualized. Pericardium No pericardial or pleural effusion. Aorta Normal size aortic root and proximal ascending aorta. CONCLUSIONS Left ventricular ejection fraction is estimated at 55-60 %. No obvious regional wall motion abnormalities. Mild LVH Normal RV size and function, RVSP 36 mmHg No other significant valvular dysfunction Previewed by: Dr Compa Moore (Electronically Signed) Final Date: 08 November 2023 11:16
--- NOTE | 2023-12-10 18:06 | US ---
Patient Suly Jefferson ID [id number] Order # EXAMINATION TYPE: US venous doppler duplex LE RT DATE OF EXAM: 11/08/2023 5:08 PM COMPARISON: No comparison available on downtime PACS. CLINICAL INDICATION: Known DVT left lower extremity SIDE PERFORMED: Right TECHNIQUE: The lower extremity deep venous system is examined utilizing real time linear array sonog moira with graded compression, doppler sonography and color-flow sonography. VESSELS IMAGED: Common Femoral Vein Deep Femoral Vein Greater Saphenous Vein * Femoral Vein Popliteal Vein Small Saphenous Vein * Proximal Calf Veins (* superficial vessels) Right Leg: No ultrasound evidence of deep venous thrombosis within the right lower extremity IMPRESSION: 1. No ultrasound evidence of deep venous thrombosis right lower extremity
--- NOTE | 2023-12-11 07:00 | XR ---
Patient Suly Jefferson ID [id number] Order # EXAMINATION TYPE: XR chest 2V DATE OF EXAM: 11/05/2023 COMPARISON: No comparison on downtime PACS INDICATION: History of PE, lower extremity edema TECHNIQUE: Frontal and lateral views of the chest are obtained. FINDINGS: The heart size is normal. The pulmonary vasculature is normal. The lungs are clear. Mild hyperinflation may be present. IMPRESSION: 1. No acute pulmonary process.
== END 2023-11-08 16:20 | DRG 300 ==
LOC: DISRECOVER 15:10
PROVIDERS: ADMIT Hospitalist; ATTEND Hospitalist
DX: I82.402 Acute embolism and thrombosis of unspecified deep veins of left lower extremity (principal); N17.9 Acute kidney failure, unspecified; E78.5 Hyperlipidemia, unspecified; I12.9 Hypertensive chronic kidney disease with stage 1 through stage 4 chronic kidney disease, or unspecified chronic kidney disease; E11.22 Type 2 diabetes mellitus with diabetic chronic kidney disease; N18.30 Chronic kidney disease, stage 3 unspecified; F17.210 Nicotine dependence, cigarettes, uncomplicated; R41.9 Unspecified symptoms and signs involving cognitive functions and awareness; J44.9 Chronic obstructive pulmonary disease, unspecified; Z86.711 Personal history of pulmonary embolism; Z72.3 Lack of physical exercise; Z99.81 Dependence on supplemental oxygen
CPT/HCPCS: 71046; 93306; 94760; 96374; 99291

== ENCOUNTER → 2024-04-22 | Outpatient (CLI) | payer MEDICARE ==
--- NOTE | 2024-04-22 13:29 | US ---
EXAMINATION TYPE: US st tissue neck DATE OF EXAM: 04/22/2024 COMPARISON: NONE CLINICAL INDICATION: Female, 73 years old with history of R59.0 LYMPHADENOPATHY; TECHNIQUE: Right and Left side of neck scanned for "lump" FINDINGS: Hypoechoic area seen (rt lat neck): 1.7x0.6x1.0cm Oval hypoechoic area seen (rt lat neck): 1.3x0.8x0.6cm IMPRESSION: A couple thickened and borderline sized lymph nodes along the right lateral neck measuring up to 1.7 cm (1.0 cm maximum short axis). Possibly reactive/post inflammatory. Clinical follow-up recommended. Ultrasound follow-up in 6-8 weeks to assess for stability/involution. If any suspicious features deve lop or if there is progressive enlargement, tissue sampling can be considered. [facility], , 04/22/2024 1:26 PM
== END | disposition home or self-care (01) ==
LOC: RADUSWWP 12:08
PROVIDERS: ATTEND Internal Medicine
DX: Z03.89 Encounter for observation for other suspected diseases and conditions ruled out (principal); R59.0 Localized enlarged lymph nodes
CPT/HCPCS: 76536

== ENCOUNTER → 2024-06-25 | Outpatient (CLI) | payer MEDICARE ==
--- NOTE | 2024-06-25 13:32 | US ---
EXAMINATION TYPE: US thyroid st tissue head/neck DATE OF EXAM: 06/25/2024 COMPARISON: NONE CLINICAL INDICATION: Female, 73 years old with history of R59.0 LOCALIZED ENLARGED LYMPH NODES; follo w up lymph nodes right neck TECHNIQUE: Grayscale color Doppler imaging of the neck. FINDINGS: lymph nodes bilateral neck, largest = 1.1 x 0.5 x 1.5cm on the right and 1.2 x 0.6 x 1.0cm on the left IMPRESSION: No organizing fluid collection or suspicious mass. Few scattered nonenlarged lymph nodes present. [facility], , 06/25/2024 1:30 PM
== END | disposition home or self-care (01) ==
LOC: RADUSWWP 10:46
PROVIDERS: ATTEND Internal Medicine
DX: R59.0 Localized enlarged lymph nodes (principal); J44.9 Chronic obstructive pulmonary disease, unspecified; E11.9 Type 2 diabetes mellitus without complications; Z86.711 Personal history of pulmonary embolism
CPT/HCPCS: 76536